=== PATIENT | male | born 1950 | race Caucasian/White ===

== ENCOUNTER 2018-09-13 18:47 | Emergency (ER) | payer OTHER, MEDICARE ==
[~2018-09-13] VITALS: Ht 167.6 cm; Wt 116.1 kg
[~2018-09-13 18:47] MED LIST: AML5T; AMLO10TA4 PO; ASPI-84; FRSM20T; KCL10CCR; MTF500T; OMEP-10 PO; SILO8CAP
--- OUTSIDE RECORDS SUMMARY | 2018-09-13 18:52 | XMS REPORT ---
Author Author SUZETTE BURT Organization [facility] Address [address] [place] [address] Care Team Providers [employer] Market Consultant Name Role Phone CARMELSUZETTE Unavailable PROBLEMS Type Condition ICD9-CM Code [id number] Code Onset Dates Condition Status SNOMED Code Problem Mood disorder F39 Active 88548389 Problem Type 2 diabetes mellitus without complication, without long-term current use of insulin E11.9 Active 451690672 Problem Elevated liver enzymes R74.8 Active 848505822 ALLERGIES No Information ENCOUNTERS Encounter Location Date Diagnosis [place] [id number] [place] [address] [id number] [place] [address] 59434- 3104 Jun, Elevated liver enzymes R74.8 [facility] [id number] [place] [address] 69761- 3108 Jun, [facility] [id number] [place] [address] 18898- 4243 Jun, [facility] [id number] [place] [address] 67895- 6333 Jun, Elevated liver enzymes R74.8 [place] [address] 00092- 5348 Jun, Type 2 diabetes mellitus without complication, without long- term current use of insulin E11.9 ; Chest pain on exertion R07.9 and Elevated liver enzymes R74.8 [facility] [id number] [place] [address] 00884- 6074 Jun, Type 2 diabetes mellitus without complication, without long- term current use of insulin E11.9 ; Chest pain on exertion R07.9 and Elevated liver enzymes R74.8 [facility] [address] 26121- 3213 Jun, [place] [id number] [place] [address] 48897- 2578 Jun, [place] [address] [id number] [place] [address] 14388- 2481 Jun, Chest pain on exertion R07.9 and SOB (shortness of breath) R06.02 [place] [id number] [place] [address] 59269- 8766 May, [place] [id number] [place] [address] 86704- 2625 May, Lumbar neuritis M54.16 [place] [id number] [place] [address] 89566- 8703 May, Pain in right hip M25.551 [place] [id number] [place] [address] 99576- 6172 May, [place] [id number] [place] [address] 72380- 3671 Apr, [place] [id number] [place] [address] 66121- 3729 Apr, [place] [id number] [place] [address] 60795- 4314 Apr, Type 2 diabetes mellitus without complication, without long- term current use of insulin E11.9 ; Mood disorder F39 and Shortness of breath R06.02 [place] [id number] [place] [address] 77867- 3932 Mar, Type 2 diabetes mellitus without complication, without long- term current use of insulin E11.9 [place] [id number] [place] [address] 14089- 2216 Mar, Type 2 diabetes mellitus without complication, without long- term current use of insulin E11.9 [place] [id number] [place] [address] 43053- 9615 Feb, Lumbar neuritis M54.16 [place] [address] [id number] [address] 6343 Feb, Lumbar neuritis M54.16 ; Type 2 diabetes mellitus without complication, without long-term current use of insulin E11.9 ; Mood disorder F39 ; Pain in left hip M25.552 and Pain in right hip M25.551 [place] [address] [id number] [address]- 4484 Feb, Lumbar neuritis M54.16 ; Pain in left hip M25.552 ; Pain in right hip M25.551 ; Type 2 diabetes mellitus without complication, without long- term current use of insulin E11.9 and Mood disorder F39 [place] [address] [place] [address] 52907- 0774 Feb, IMMUNIZATIONS No Known Immunizations SOCIAL HISTORY Never Assessed REASON FOR VISIT controlled medication PLAN OF CARE VITAL SIGNS MEDICATIONS Unknown Medications RESULTS No Results PROCEDURES No Known procedures INSTRUCTIONS MEDICATIONS ADMINISTERED No Known Medications MEDICAL (GENERAL) HISTORY Type Description Date Medical History Heart disease Medical History HTN Medical History Anxiety Medical History displaced vertebrae Medical History hip displacement b/l Medical History diabetes Surgical History Scar tissue repair R kidney 1980 Surgical History Quad CABG 2000 Surgical History Carpal tunnel release b/l 1996 Hospitalization History surgeries only
--- OUTSIDE RECORDS SUMMARY | 2018-09-13 18:52 | XMS REPORT ---
Author Author SUZETTE BURT Organization [facility] Address [address] [place] [address] Care Team Providers Care Corporate Staff Accountant Name Role Phone CARMELSUZETTE Unavailable PROBLEMS Type Condition ICD9-CM Code [id number] Code Onset Dates Condition Status SNOMED Code Problem Mood disorder F39 Active 04405850 Problem Type 2 diabetes mellitus without complication, without long-term current use of insulin E11.9 Active 430106473 Problem Elevated liver enzymes R74.8 Active 630852656 ALLERGIES No Known Allergies ENCOUNTERS Encounter Location Date Diagnosis [place] [id number] [address] [id number] [place] [address] 87268- 3601 Jun, Elevated liver enzymes R74.8 [facility] [id number] [place] [address] 34479- 6581 Jun, [facility] [id number] [place] [address] 53340- 8409 Jun, [facility] [id number] [place] [address] 16343- 3124 Jun, Elevated liver enzymes R74.8 [place] [address] [place] [address] [id number] [place] [address] 12678- 9373 Jun, Type 2 diabetes mellitus without complication, without long- term current use of insulin E11.9 ; Chest pain on exertion R07.9 and Elevated liver enzymes R74.8 [facility] [address] 28120- 2179 05 Jun, 2017 Type 2 diabetes mellitus without complication, without long- term current use of insulin E11.9 ; Chest pain on exertion R07.9 and Elevated liver enzymes R74.8 [facility] [id number] [place] [address] 86199- 6241 Jun, [place] [id number] [place] [address] 65373- 5511 Jun, [place] [id number] [place] [address] 06800- 0760 Jun, Chest pain on exertion R07.9 and SOB (shortness of breath) R06.02 [place] [id number] [place] [address] 15879- 5528 May, [place] [id number] [place] [address] 15443- 6346 May, Lumbar neuritis M54.16 [place] [id number] [place] [address] 10772- 5241 May, Pain in right hip M25.551 [place] [id number] [place] [address] 88139- 2017 May, [place] [id number] [place] [address] 53985- 4619 Apr, [place] [id number] [place] [address] 59049- 6932 Apr, [place] [id number] [place] [address] 17026- 6587 Apr, Type 2 diabetes mellitus without complication, without long- term current use of insulin E11.9 ; Mood disorder F39 and Shortness of breath R06.02 [place] [id number] [place] [address] 32116- 3132 Mar, Type 2 diabetes mellitus without complication, without long- term current use of insulin E11.9 [place] [id number] [place] [address] 23809- 5084 Mar, Type 2 diabetes mellitus without complication, without long- term current use of insulin E11.9 [place] [id number] [place] [address] 87576- 2428 Feb, Lumbar neuritis M54.16 [place] [address] [facility] [id number] [address]- 5490 Feb, Lumbar neuritis M54.16 ; Type 2 diabetes mellitus without complication, without long-term current use of insulin E11.9 ; Mood disorder F39 ; Pain in left hip M25.552 and Pain in right hip M25.551 [place] [address] [place] [id number] [address]- 6918 Feb, Lumbar neuritis M54.16 ; Pain in left hip M25.552 ; Pain in right hip M25.551 ; Type 2 diabetes mellitus without complication, without long- term current use of insulin E11.9 and Mood disorder F39 [place] [address] [place] [id number] [place] [address] 75105- 7078 Feb, IMMUNIZATIONS No Known Immunizations SOCIAL HISTORY Never Assessed REASON FOR VISIT cholesterol, bp, pain, Reports made appt to f/u because that is what he did with other providers. CBrumbackRN PLAN OF CARE VITAL SIGNS Height 68 in 2017-04-28 Weight 254.6 lbs 2017-04-28 Temperature 97.7 degrees Fahrenheit 2017-04-28 Heart Rate 88 bpm 2017-04-28 Respiratory Rate 20 2017-04-28 BMI 38.71 kg/m2 2017-04-28 Blood pressure systolic 130 mmHg 2017-04-28 Blood pressure diastolic 76 mmHg 2017-04-28 MEDICATIONS Medication Instructions Dosage Frequency Start Date End Date Duration Status Desoximetasone 0.25 % Externally Twice a day 1 application to affected area 12h Active Fenofibrate Micronized 134 MG Orally Once a day 1 capsule with a meal 24h Feb, 30 day(s) Active True Metrix Blood Glucose Test - Active Amlodipine Besylate 10 MG Orally Once a day 1 tablet 24h 30 days Active Rosuvastatin Calcium 40 mg Orally at bedtime 1 tablet Active Lancets - Active Oxycodone HCl 30 MG Orally 2 times a day 0.5 - 1 tablet as needed 12h Mar, 28 days Active Metformin HCl 500 MG Orally Twice a day approximately 12 hours apart 2 tablets 30 days Active RESULTS Name Result Date Reference Range Xray : Chest (IN HOUSE) 2017-04-28 PROCEDURES Procedure Date Ordered Result Body Site CHEST X-RAY Apr 28, 2017 [facility] VISIT ESTABLISHED PATIENT Apr 28, 2017 INSTRUCTIONS MEDICATIONS ADMINISTERED No Known Medications MEDICAL [...]
--- OUTSIDE RECORDS SUMMARY | 2018-09-13 18:52 | XMS REPORT ---
Author Author SUZETTE BURT Organization [facility] Address [address] [place] [address] Care Team Providers Care Profiler Operator Name Role Phone CARMELSUZETTE Unavailable PROBLEMS Type Condition ICD9-CM Code [id number] Code Onset Dates Condition Status SNOMED Code Problem Mood disorder F39 Active 14465007 Problem Type 2 diabetes mellitus without complication, without long-term current use of insulin E11.9 Active 770074121 Problem Elevated liver enzymes R74.8 Active 273821559 ALLERGIES No Information ENCOUNTERS Encounter Location Date Diagnosis [place] [address] [place] [id number] [place] [address] 65081- 0187 Jun, Elevated liver enzymes R74.8 [facility] [id number] [place] [address] 53630- 7352 Jun, [facility] [id number] [place] [address] 91885- 3628 Jun, [facility] [id number] [place] [address] 47298- 2066 Jun, Elevated liver enzymes R74.8 [place] [address] 52597- 4594 Jun, Type 2 diabetes mellitus without complication, without long- term current use of insulin E11.9 ; Chest pain on exertion R07.9 and Elevated liver enzymes R74.8 [facility] [id number] [place] [address] 41853- 2678 Jun, Type 2 diabetes mellitus without complication, without long- term current use of insulin E11.9 ; Chest pain on exertion R07.9 and Elevated liver enzymes R74.8 [facility] [address] 63626- 1787 Jun, [place] [id number] [place] [address] 13029- 0064 Jun, [place] [id number] [place] [address] 94791- 7008 Jun, Chest pain on exertion R07.9 and SOB (shortness of breath) R06.02 [place] [id number] [place] [address] 76227- 9275 May, [place] [id number] [place] [address] 24215- 8479 May, Lumbar neuritis M54.16 [place] [id number] [place] [address] 21469- 4547 May, Pain in right hip M25.551 [place] [id number] [place] [address] 51838- 9402 May, [place] [id number] [place] [address] 66507- 8595 Apr, [place] [address] [id number] [place] [address] 15045- 6599 Apr, [place] [id number] [place] [address] 12936- 8984 Apr, Type 2 diabetes mellitus without complication, without long- term current use of insulin E11.9 ; Mood disorder F39 and Shortness of breath R06.02 [place] [id number] [place] [address] 80541- 0595 Mar, Type 2 diabetes mellitus without complication, without long- term current use of insulin E11.9 [place] [id number] [place] [address] 81487- 5036 Mar, Type 2 diabetes mellitus without complication, without long- term current use of insulin E11.9 [place] [id number] [place] [address] 76149- 8665 Feb, Lumbar neuritis M54.16 [place] [address] [id number] [address]- 3209 Feb, Lumbar neuritis M54.16 ; Type 2 diabetes mellitus without complication, without long-term current use of insulin E11.9 ; Mood disorder F39 ; Pain in left hip M25.552 and Pain in right hip M25.551 [place] [address] [place] [id number] [address]- 8410 Feb, Lumbar neuritis M54.16 ; Pain in left hip M25.552 ; Pain in right hip M25.551 ; Type 2 diabetes mellitus without complication, without long- term current use of insulin E11.9 and Mood disorder F39 [place] [address] [place] [id number] [address]- 8006 Feb, IMMUNIZATIONS No Known Immunizations SOCIAL HISTORY Never Assessed REASON FOR VISIT controlled med PLAN OF CARE VITAL SIGNS MEDICATIONS Unknown [...]
--- OUTSIDE RECORDS SUMMARY | 2018-09-13 18:52 | XMS REPORT ---
Author Author SUZETTE BURT Organization [facility] Address [address] [place] [address] Care Team Providers Care Embossing Calender Operator Name Role Phone CARMELSUZETTE Unavailable PROBLEMS Type Condition ICD9-CM Code [id number] Code Onset Dates Condition Status SNOMED Code Problem Mood disorder F39 Active 57049498 Problem Type 2 diabetes mellitus without complication, without long-term current use of insulin E11.9 Active 777456421 Problem Elevated liver enzymes R74.8 Active 479586246 ALLERGIES No Information ENCOUNTERS Encounter Location Date Diagnosis [place] [address] [place] [address] [id number] [place] [address] 74243- 8379 Jun, Elevated liver enzymes R74.8 [facility] [id number] [place] [address] 58105- 0528 Jun, [facility] [id number] [place] [address] 28119- 9998 Jun, [facility] [id number] [place] [address] 86841- 8302 Jun, Elevated liver enzymes R74.8 [place] [address] 06295- 9155 Jun, Type 2 diabetes mellitus without complication, without long- term current use of insulin E11.9 ; Chest pain on exertion R07.9 and Elevated liver enzymes R74.8 [facility] [id number] [place] [address] 30662- 7551 Jun, Type 2 diabetes mellitus without complication, without long- term current use of insulin E11.9 ; Chest pain on exertion R07.9 and Elevated liver enzymes R74.8 [facility] [address] 26376- 4556 Jun, [place] [id number] [place] [address] 40986- 2973 Jun, [place] [id number] [place] [address] 75813- 6351 Jun, Chest pain on exertion R07.9 and SOB (shortness of breath) R06.02 [place] [id number] [place] [address] 20206- 1983 May, [place] [id number] [place] [address] 62377- 2187 May, Lumbar neuritis M54.16 [place] [id number] [place] [address] 56534- 7964 May, Pain in right hip M25.551 [place] [id number] [place] [address] 51056- 1861 May, [place] [address] [id number] [place] [address] 54754- 8666 Apr, [place] [address] [id number] [place] [address] 21763- 4586 Apr, [place] [id number] [place] [address] 70905- 2215 Apr, Type 2 diabetes mellitus without complication, without long- term current use of insulin E11.9 ; Mood disorder F39 and Shortness of breath R06.02 [place] [id number] [place] [address] 47854- 0323 Mar, Type 2 diabetes mellitus without complication, without long- term current use of insulin E11.9 [place] [id number] [place] [address] 37089- 1960 Mar, Type 2 diabetes mellitus without complication, without long- term current use of insulin E11.9 [place] [id number] [place] [address] 23478- 5285 Feb, Lumbar neuritis M54.16 [place] [address] [place] [id number], [place] [address]- 3260 Feb, Lumbar neuritis M54.16 ; Type 2 diabetes mellitus without complication, without long-term current use of insulin E11.9 ; Mood disorder F39 ; Pain in left hip M25.552 and Pain in right hip M25.551 [place] [address] [place] [address] [id number] [place] [address] 93482- 7491 Feb, Lumbar neuritis M54.16 ; Pain in left hip M25.552 ; Pain in right hip M25.551 ; Type 2 diabetes mellitus without complication, without long- term current use of insulin E11.9 and Mood disorder F39 [place] [address] [place] [address] 06206- 1311 Feb, IMMUNIZATIONS No Known Immunizations SOCIAL HISTORY Never Assessed REASON FOR VISIT Lab (walk-in)--[facility] PLAN OF CARE VITAL SIGNS MEDICATIONS Unknown Medications RESULTS Name Result Date Reference Range HEPATITIS PROFILE 2017-07-24 HEPATITIS A IGM NON-REACTIVE NON-REACTIVE HEPATITIS B SURFACE ANTIGEN NON-REACTIVE NON-REACTIVE HEPATITIS B CORE ANTIBODY (IGM) NON-REACTIVE NON-REACTIVE HEPATITIS C ANTIBODY NON-REACTIVE NON-REACTIVE SIGNAL TO CUT-OFF 0.02 <1.00 PROCEDURES Procedure Date Ordered Result Body Site LAB NOT BILLED BY [facility] Jul 24, 2017 VENIPUNCT, ROUTINE* Jul 24, 2017 INSTRUCTIONS MEDICATIONS ADMINISTERED No Known Medications [...]
--- OUTSIDE RECORDS SUMMARY | 2018-09-13 18:52 | XMS REPORT ---
Author Author SUZETTE BURT Organization [facility] Address [address] [place] [address] Care Team Providers Care Woolen Tester Name Role Phone SUZETTE BURT Unavailable PROBLEMS Type Condition ICD9-CM Code ADO83-SF Code Onset Dates Condition Status SNOMED Code Problem Mood disorder F39 Active 45462905 Problem Type 2 diabetes mellitus without complication, without long-term current use of insulin E11.9 Active 600696401 Problem Elevated liver enzymes R74.8 Active 478803336 ALLERGIES No Information ENCOUNTERS Encounter Location Date Diagnosis [place] [id number] [place] [address] 40394- 4099 Dec, [place] [address] 10472- 8791 Jun, Elevated liver enzymes R74.8 [facility] [id number] [place] [address] 54666- 6331 Jun, [place] [id number] [place] [address] 10688- 6177 Jun, [place] [id number] [place] [address] 82273- 3451 Jun, Elevated liver enzymes R74.8 [facility] [id number] [place] [address] 88797- 6864 Jun, Type 2 diabetes mellitus without complication, without long- term current use of insulin E11.9 ; Chest pain on exertion R07.9 and Elevated liver enzymes R74.8 [place] [id number] [place] [address] 97276- 9332 05 Jun, 2017 Type 2 diabetes mellitus without complication, without long- term current use of insulin E11.9 ; Chest pain on exertion R07.9 and Elevated liver enzymes R74.8 [facility] [address] [address] 6288 Jun, [facility] [id number] [place] [address] 91936- 4636 Jun, [facility] [id number] [place] [address] 67208- 4758 Jun, Chest pain on exertion R07.9 and SOB (shortness of breath) R06.02 [facility] [id number] [place] [address] 09949- 3074 May, [place] [id number] [place] [address] 47291- 7738 May, Lumbar neuritis M54.16 [place] [id number] [place] [address] 52047- 8208 May, Pain in right hip M25.551 [place] [id number] [place] [address] 51541- 6730 May, [facility] [id number] [place] [address] 30045- 4030 Apr, [place] [id number] [place] [address] 92401- 5669 Apr, [place] [id number] [place] [address] 22172- 5953 Apr, Type 2 diabetes mellitus without complication, without long- term current use of insulin E11.9 ; Mood disorder F39 and Shortness of breath R06.02 [facility] [address] [address] 2173 Mar, Type 2 diabetes mellitus without complication, without long- term current use of insulin E11.9 [facility] [address] [address] 7707 Mar, Type 2 diabetes mellitus without complication, without long- term current use of insulin E11.9 [place] [address] [place] [id number] [address] 0004 Feb, Lumbar neuritis M54.16 [place] [id number] [place] [address] 93833- 0880 Feb, Lumbar neuritis M54.16 ; Type 2 diabetes mellitus without complication, without long-term current use of insulin E11.9 ; Mood disorder F39 ; Pain in left hip M25.552 and Pain in right hip M25.551 [place] [address] [place] [address] 87112- 4627 Feb, Lumbar neuritis M54.16 ; Pain in left hip M25.552 ; Pain in right hip M25.551 ; Type 2 diabetes mellitus without complication, without long- term current use of insulin E11.9 and Mood disorder F39 [address] [place] [address] 31605- 0920 Feb, IMMUNIZATIONS No Known Immunizations SOCIAL HISTORY Never Assessed REASON FOR VISIT Lab (walk-in) PLAN OF CARE VITAL SIGNS MEDICATIONS Unknown Medications RESULTS Name Result Date Reference Range TSH 2017-03-20 TSH 1.120 0.450-4.500 CBC 2017-03-20 WBC 10.8 3.4-10.8 RBC 5.26 4.14-5.80 Hemoglobin 16.6 12.6-17.7 Hematocrit 48.1 37.5-51.0 MCV 91 79-97 MCH 31.6 26.6-33.0 MCHC 34.5 31.5-35.7 RDW 13.9 12.3-15.4 Platelets 210 150-379 Neutrophils 66 Not Estab. Lymphs 21 Not Estab. Monocytes 7 Not Estab. Eos 4 Not Estab. Basos 1 Not Estab. Neutrophils (Absolute) 7.2 1.4-7.0 Lymphs (Absolute) 2.3 0.7-3.1 Monocytes(Absolute) 0.8 0.1-0.9 Eos (Absolute) 0.4 0.0-0.4 Baso (Absolute) 0.1 0.0-0.2 Immature Granulocytes 1 Not Estab. Immature Grans (Abs) 0.1 0.0-0.1 CMP 2017-03-20 Glucose, Serum 217 65-99 BUN 16 8-27 Creatinine, Serum 0.82 0.76-1.27 eGFR If NonAfricn Am 92 >59 eGFR If Africn Am 106 >59 BUN/Creatinine Ratio 20 10-24 Sodium, Serum 139 134-144 Potassium, Serum 4.4 3.5-5.2 Chloride, Serum 95 96-106 Carbon Dioxide, Total 24 18-29 Calcium, Serum 9.6 8.6-10.2 Protein, Total, Serum 7.7 6.0-8.5 Albumin, Serum 4.1 3.6-4.8 Globulin, Total 3.6 1.5-4.5 A/G Ratio 1.1 1.2-2.2 Bilirubin, Total 0.5 0.0-1.2 Alkaline Phosphatase, S 80 39-117 AST (SGOT) 131 0-40 ALT (SGPT) 91 0-44 LIPID PANEL 2017-03-20 Cholesterol, Total 226 100-199 Triglycerides 352 0-149 HDL Cholesterol 29 >39 VLDL Cholesterol Jhonny 70 5-40 LDL Cholesterol Calc 127 0-99 Comment: PROCEDURES Procedure Date Ordered Result Body Site LAB NOT BILLED BY [facility] Mar 20, 2017 VENIPUNCT, ROUTINE* Mar 20, 2017 INSTRUCTIONS MEDICATIONS ADMINISTERED No Known Medications MEDICAL (GENERAL) HISTORY Type Description Date Medical History Heart disease Medical History HTN Medical History Anxiety Medical History displaced vertebrae Medical History hip displacement b/l Medical History diabetes Surgical History Scar tissue repair R kidney 1981 Surgical History Quad CABG 2000 Surgical History Carpal tunnel release b/l 1996 Hospitalization History surgeries only
--- OUTSIDE RECORDS SUMMARY | 2018-09-13 18:52 | XMS REPORT ---
Author Author SUZETTE BURT Organization [facility] Address [address] [place] [address] Care Team Providers Care State Director Name Role Phone CARMELSUZETTE Unavailable PROBLEMS Type Condition ICD9-CM Code FIH18-PW Code Onset Dates Condition Status SNOMED Code Problem Mood disorder F39 Active 91727645 Problem Type 2 diabetes mellitus without complication, without long-term current use of insulin E11.9 Active 537645454 Problem Elevated liver enzymes R74.8 Active 055586461 ALLERGIES No Information ENCOUNTERS Encounter Location Date Diagnosis [place] [address] [place] [address] [id number] [place] [address] 03977- 8044 Jun, Elevated liver enzymes R74.8 [facility] [id number] [place] [address] 42760- 8386 Jun, [facility] [id number] [place] [address] 68525- 5297 Jun, [facility] [address] 60413- 7521 Jun, Elevated liver enzymes R74.8 [place] [address] 36924- 4929 Jun, Type 2 diabetes mellitus without complication, without long- term current use of insulin E11.9 ; Chest pain on exertion R07.9 and Elevated liver enzymes R74.8 [facility] [id number] [place] [address] 33904- 9732 Jun, Type 2 diabetes mellitus without complication, without long- term current use of insulin E11.9 ; Chest pain on exertion R07.9 and Elevated liver enzymes R74.8 [facility] [address] 58374- 4983 Jun, [place] [id number] [place] [address] 21992- 9762 Jun, [place] [address] [id number] [place] [address] 65370- 0691 Jun, Chest pain on exertion R07.9 and SOB (shortness of breath) R06.02 [place] [address] [id number] [place] [address] 49942- 2794 May, [place] [address] [id number] [place] [address] 49267- 5452 May, Lumbar neuritis M54.16 [place] [address] [id number] [place] [address] 25414- 1623 May, Pain in right hip M25.551 [place] [address] [id number] [place] [address] 38582- 9067 May, [place] [address] [id number] [place] [address] 89732- 0857 Apr, [place] [address] [id number] [place] [address] 79053- 0171 Apr, [place] [address] [id number] [place] [address] 68453- 7807 Apr, Type 2 diabetes mellitus without complication, without long- term current use of insulin E11.9 ; Mood disorder F39 and Shortness of breath R06.02 [place] [id number] [place] [address] 06692- 9427 Mar, Type 2 diabetes mellitus without complication, without long- term current use of insulin E11.9 [place] [id number] [place] [address] 12951- 7257 Mar, Type 2 diabetes mellitus without complication, without long- term current use of insulin E11.9 [place] [address] [id number] [place] [address] 82234- 9354 Feb, Lumbar neuritis M54.16 [place] [address] [place] [id number] [address]- 6658 Feb, Lumbar neuritis M54.16 ; Type 2 diabetes mellitus without complication, without long-term current use of insulin E11.9 ; Mood disorder F39 ; Pain in left hip M25.552 and Pain in right hip M25.551 [place] [address] [place] [id number] [place] [address] 31628- 2326 Feb, Lumbar neuritis M54.16 ; Pain in left hip M25.552 ; Pain in right hip M25.551 ; Type 2 diabetes mellitus without complication, without long- term current use of insulin E11.9 and Mood disorder F39 [place] [address] [place] [address] 21082- 8009 Feb, IMMUNIZATIONS No Known Immunizations SOCIAL HISTORY Never Assessed REASON FOR VISIT lab results PLAN OF CARE VITAL SIGNS MEDICATIONS Unknown [...]
--- OUTSIDE RECORDS SUMMARY | 2018-09-13 18:52 | XMS REPORT ---
Author Author SUZETTE BURT Organization [facility] Address [address] [place] [address] Care Team Providers Care Gravity Prospector Name Role Phone SUZETTE BURT Unavailable PROBLEMS Type Condition ICD9-CM Code QHO53-GC Code Onset Dates Condition Status SNOMED Code Problem Mood disorder F39 Active 67720348 Problem Type 2 diabetes mellitus without complication, without long-term current use of insulin E11.9 Active 645654255 Problem Elevated liver enzymes R74.8 Active 439905257 ALLERGIES No Known Allergies ENCOUNTERS Encounter Location Date Diagnosis [place] [id number] [place] [address] 80078- 6371 Dec, [facility] [id number] [place] [address] 05878- 8867 Jun, Elevated liver enzymes R74.8 [facility] [id number] [place] [address] 79786- 6752 Jun, [facility] [id number] [place] [address] 48292- 2137 Jun, [place] [address] [place] [id number] [place] [address] 98777- 7836 Jun, Elevated liver enzymes R74.8 [facility] [id number] [place] [address] 28492- 0042 Jun, Type 2 diabetes mellitus without complication, without long- term current use of insulin E11.9 ; Chest pain on exertion R07.9 and Elevated liver enzymes R74.8 [facility] [id number] [place] [address] 02370- 8086 05 Jun, 2017 Type 2 diabetes mellitus without complication, without long- term current use of insulin E11.9 ; Chest pain on exertion R07.9 and Elevated liver enzymes R74.8 [place] [address], [place] [address]- 8411 Jun, [facility] [id number] [place] [address] 23609- 1676 Jun, [facility] [id number] [place] [address] 78560- 7511 Jun, Chest pain on exertion R07.9 and SOB (shortness of breath) R06.02 [place] [address] [place] [id number] [place] [address] 08686- 8583 May, [place] [id number] [place] [address] 89703- 7836 May, Lumbar neuritis M54.16 [place] [id number] [place] [address] 76854- 4510 May, Pain in right hip M25.551 [place] [id number] [place] [address] 10883- 2356 May, [place] [address] [id number] [place] [address] 71902- 7269 Apr, [place] [id number] [place] [address] 50195- 0215 Apr, [place] [address] [place] [address] 10752- 4862 Apr, Type 2 diabetes mellitus without complication, without long- term current use of insulin E11.9 ; Mood disorder F39 and Shortness of breath R06.02 [facility] [address] [place] [address] 54585- 2811 Mar, Type 2 diabetes mellitus without complication, without long- term current use of insulin E11.9 [place] [address] [place] [address] 34377- 1803 Mar, Type 2 diabetes mellitus without complication, without long- term current use of insulin E11.9 [place] [address], [place] [address]- 5497 Feb, Lumbar neuritis M54.16 [place] [id number] [place] [address] 32137- 9375 Feb, Lumbar neuritis M54.16 ; Type 2 diabetes mellitus without complication, without long-term current use of insulin E11.9 ; Mood disorder F39 ; Pain in left hip M25.552 and Pain in right hip M25.551 [place] [address] [place] [address] 45602- 1864 Feb, Lumbar neuritis M54.16 ; Pain in left hip M25.552 ; Pain in right hip M25.551 ; Type 2 diabetes mellitus without complication, without long- term current use of insulin E11.9 and Mood disorder F39 [address] [place] [address] 64911- 1759 Feb, IMMUNIZATIONS No Known Immunizations SOCIAL HISTORY Never Assessed REASON FOR VISIT Establish Care--Norma Ram MA PLAN OF CARE VITAL SIGNS Height 68 in 2017-03-17 Weight 251.6 lbs 2017-03-17 Temperature 98.4 degrees Fahrenheit 2017-03-17 Heart Rate 88 bpm 2017-03-17 Respiratory Rate 20 2017-03-17 BMI 38.25 kg/m2 2017-03-17 Blood pressure systolic 128 mmHg 2017-03-17 Blood pressure diastolic 78 mmHg 2017-03-17 MEDICATIONS Medication Instructions Dosage Frequency Start Date End Date Duration Status Oxycodone HCl 30 MG Orally to 1 tablet twice a day as needed for pain 0.5 tablet as needed Active Metformin HCl 500 mg Orally Twice a day approximately 12 hours apart 2 tablets Active Amlodipine Besylate 10 MG Orally Once a day 1 tablet 24h Active Desoximetasone 0.25 % Externally Twice a day 1 application to affected area 12h Active Lancets - Active Rosuvastatin Calcium 40 mg Orally at bedtime 1 tablet Active True Metrix Blood Glucose Test - Active RESULTS Name Result Date Reference Range A1C (IN HOUSE) 2017-03-17 A1C IN HOUSE 9.3 4.3 - 5.6 % Previous A1c Lot [id number] Exp date 12/14 PROCEDURES Procedure Date Ordered Result Body Site GLYCATED HEMOGLOBIN TEST Mar 17, 2017 [facility] VISIT NEW PATIENT Mar 17, 2017 INSTRUCTIONS MEDICATIONS ADMINISTERED No Known Medications [...]
[2018-09-13] MEDS ORDERED: HYDROmorphone 2 MG/ML VIAL (DILAUDID) ONE (18:53)
--- OUTSIDE RECORDS SUMMARY | 2018-09-13 18:53 | XMS REPORT ---
Author Author SUZETTE BURT Organization [facility] Address [address] [place] [address] Care Team Providers Care Marriage And Family Counselor Name Role Phone CARMELSUZETTE Unavailable PROBLEMS Type Condition ICD9-CM Code KNR14-SE Code Onset Dates Condition Status SNOMED Code Problem Mood disorder F39 Active 49417118 Problem Type 2 diabetes mellitus without complication, without long-term current use of insulin E11.9 Active 165732242 Problem Elevated liver enzymes R74.8 Active 541361874 ALLERGIES No Known Allergies ENCOUNTERS Encounter Location Date Diagnosis [place] [address] [place] [id number] [place] [address] 57749- 8159 Jun, Elevated liver enzymes R74.8 [facility] [id number] [place] [address] 80111- 0617 Jun, [facility] [id number] [place] [address] 54701- 6693 Jun, [facility] [id number] [place] [address] 18042- 6477 Jun, Elevated liver enzymes R74.8 [place] [address] [id number] [place] [address] 67689- 0995 Jun, Type 2 diabetes mellitus without complication, without long- term current use of insulin E11.9 ; Chest pain on exertion R07.9 and Elevated liver enzymes R74.8 [facility] [address] 44585- 5064 05 Jun, 2017 Type 2 diabetes mellitus without complication, without long- term current use of insulin E11.9 ; Chest pain on exertion R07.9 and Elevated liver enzymes R74.8 [facility] [id number] [place] [address] 76587- 9494 Jun, [place] [id number] [place] [address] 38016- 0229 Jun, [place] [address] [place] [address] 92485- 9438 Jun, Chest pain on exertion R07.9 and SOB (shortness of breath) R06.02 [place] [id number] [place] [address] 84777- 9934 May, [place] [id number] [place] [address] 84251- 1081 May, Lumbar neuritis M54.16 [place] [address] [place] [address] 31611- 3602 May, Pain in right hip M25.551 [place] [id number] [place] [address] 32515- 2436 May, [place] [id number] [place] [address] 84397- 9354 Apr, [place] [id number] [place] [address] 18111- 3639 Apr, [place] [id number] [place] [address] 13627- 6662 Apr, Type 2 diabetes mellitus without complication, without long- term current use of insulin E11.9 ; Mood disorder F39 and Shortness of breath R06.02 [place] [id number] [place] [address] 87312- 2960 Mar, Type 2 diabetes mellitus without complication, without long- term current use of insulin E11.9 [place] [id number] [place] [address] 02350- 7345 Mar, Type 2 diabetes mellitus without complication, without long- term current use of insulin E11.9 [place] [id number] [place] [address] 62651- 7655 Feb, Lumbar neuritis M54.16 [place] [address] [facility] [id number] [address]- 4005 Feb, Lumbar neuritis M54.16 ; Type 2 diabetes mellitus without complication, without long-term current use of insulin E11.9 ; Mood disorder F39 ; Pain in left hip M25.552 and Pain in right hip M25.551 [place] [address] [place] [id number], [place] [address]- 0592 Feb, Lumbar neuritis M54.16 ; Pain in left hip M25.552 ; Pain in right hip M25.551 ; Type 2 diabetes mellitus without complication, without long- term current use of insulin E11.9 and Mood disorder F39 [place] [address] [place] [address] 05434- 1213 Feb, IMMUNIZATIONS No Known Immunizations SOCIAL HISTORY Never Assessed REASON FOR VISIT Shortness of breath with the simple tasks-[place] ID PLAN OF CARE VITAL SIGNS Height 68 in 2017-06-30 Weight 252.8 lbs 2017-06-30 Temperature 98.9 degrees Fahrenheit 2017-06-30 Heart Rate 92 bpm 2017-06-30 Respiratory Rate 20 2017-06-30 Oximetry 94 % 2017-06-30 BMI 38.43 kg/m2 2017-06-30 Blood pressure systolic 142 mmHg 2017-06-30 Blood pressure diastolic 98 mmHg 2017-06-30 MEDICATIONS Medication Instructions Dosage Frequency Start Date End Date Duration Status Lancets - Active Rosuvastatin Calcium 40 mg Orally at bedtime 1 tablet Active True Metrix Blood Glucose Test - Active Desoximetasone 0.25 % Externally Twice a day 1 application to affected area 12h Active Metformin HCl 500 MG Orally Twice a day approximately 12 hours apart 2 tablets 30 days Active Oxycodone HCl 30 MG Orally 2 times a day 0.5 - 1 tablet as needed 12h May, 28 days Active Amlodipine Besylate 10 MG Orally Once a day 1 tablet 24h 30 days Active Fenofibrate Micronized 134 MG Orally Once a day 1 capsule with a meal 24h Feb, 30 day(s) Active RESULTS No Results PROCEDURES Procedure Date Ordered Result Body Site EKG, TRACING (IN-HOUSE) 2017-06-30 Abnormal MEASURE BLOOD OXYGEN LEVEL Jun 30, 2017 VENIPUNCT, ROUTINE* Jun 30, 2017 [facility] VISIT ESTABLISHED PATIENT Jun 30, 2017 ELECTROCARDIOGRAM, TRACING Jun 30, 2017 [facility] Jun 30, 2017 INSTRUCTIONS MEDICATIONS ADMINISTERED No Known Medications [...]
--- OUTSIDE RECORDS SUMMARY | 2018-09-13 18:53 | XMS REPORT ---
Author Author SUZETTE BURT Organization [facility] Address [address] [place] [address] Care Team Providers Care Healthcare Advisory Services Manager Name Role Phone CARMELSUZETTE Unavailable PROBLEMS Type Condition ICD9-CM Code TNV67-OB Code Onset Dates Condition Status SNOMED Code Problem Mood disorder F39 Active 97418383 Problem Type 2 diabetes mellitus without complication, without long-term current use of insulin E11.9 Active 963170253 Problem Elevated liver enzymes R74.8 Active 908605903 ALLERGIES No Information ENCOUNTERS Encounter Location Date Diagnosis [place] [id number] [place] [id number] [place] [address] 36735- 2215 Jun, Elevated liver enzymes R74.8 [facility] [id number] [place] [address] 36190- 3806 Jun, [facility] [id number] [place] [address] 26983- 6898 Jun, [facility] [address] 8[address]46- 0768 Jun, Elevated liver enzymes R74.8 [place] [address] 86742- 0699 Jun, Type 2 diabetes mellitus without complication, without long- term current use of insulin E11.9 ; Chest pain on exertion R07.9 and Elevated liver enzymes R74.8 [facility] [id number] [place] [address] 00975- 4012 Jun, Type 2 diabetes mellitus without complication, without long- term current use of insulin E11.9 ; Chest pain on exertion R07.9 and Elevated liver enzymes R74.8 [facility] [address] 52515- 3338 Jun, [place] [id number] [place] [address] 14239- 3421 Jun, [place] [id number] [place] [address] 56342- 6477 Jun, Chest pain on exertion R07.9 and SOB (shortness of breath) R06.02 [place] [id number] [place] [address] 01557- 5857 May, [place] [id number] [place] [address] 38935- 1920 May, Lumbar neuritis M54.16 [place] [id number] [place] [address] 95554- 0056 May, Pain in right hip M25.551 [place] [id number] [place] [address] 34769- 6029 May, [place] [id number] [place] [address] 36291- 9828 Apr, [place] [id number] [place] [address] 08178- 3125 Apr, [place] [id number] [place] [address] 20844- 1752 Apr, Type 2 diabetes mellitus without complication, without long- term current use of insulin E11.9 ; Mood disorder F39 and Shortness of breath R06.02 [place] [id number] [place] [address] 92069- 3654 Mar, Type 2 diabetes mellitus without complication, without long- term current use of insulin E11.9 [place] [id number] [place] [address] 99444- 4380 Mar, Type 2 diabetes mellitus without complication, without long- term current use of insulin E11.9 [place] [id number] [place] [address] 47224- 5827 Feb, Lumbar neuritis M54.16 [place] [address] [id number] [address]- 8616 Feb, Lumbar neuritis M54.16 ; Type 2 diabetes mellitus without complication, without long-term current use of insulin E11.9 ; Mood disorder F39 ; Pain in left hip M25.552 and Pain in right hip M25.551 [place] [address] [place] [address] [id number], [place] [address]- 4509 Feb, Lumbar neuritis M54.16 ; Pain in left hip M25.552 ; Pain in right hip M25.551 ; Type 2 diabetes mellitus without complication, without long- term current use of insulin E11.9 and Mood disorder F39 [place] [address] [place] [address] 70787- 1980 Feb, IMMUNIZATIONS No Known Immunizations SOCIAL HISTORY Never Assessed REASON FOR VISIT Lab (walk-in)--[facility] PLAN OF CARE VITAL SIGNS MEDICATIONS Unknown Medications RESULTS No Results PROCEDURES Procedure Date Ordered Result Body Site LAB NOT BILLED BY [facility] Jul 17, 2017 VENIPUNCT, ROUTINE* Jul 17, 2017 INSTRUCTIONS MEDICATIONS ADMINISTERED No Known [...]
--- OUTSIDE RECORDS SUMMARY | 2018-09-13 18:53 | XMS REPORT ---
Author Author SUZETTE BRUT Organization [facility] Address [address] [place] [address] Care Team Providers Care Citrus Fruit Packer Name Role Phone CARMELSUZETTE Unavailable PROBLEMS Type Condition ICD9-CM Code XUM19-CK Code Onset Dates Condition Status SNOMED Code Problem Mood disorder F39 Active 65610900 Problem Type 2 diabetes mellitus without complication, without long-term current use of insulin E11.9 Active 001461326 Problem Elevated liver enzymes R74.8 Active 179151337 ALLERGIES No Information ENCOUNTERS Encounter Location Date Diagnosis [place] [address] [place] [id number] [place] [address] 59899- 6358 Jun, Elevated liver enzymes R74.8 [facility] [address] [id number] [place] [address] 04603- 9380 Jun, [facility] [id number] [place] [address] 64360- 8038 Jun, [facility] [address] 33266- 4690 Jun, Elevated liver enzymes R74.8 [facility] [address] 45270- 2445 Jun, Type 2 diabetes mellitus without complication, without long- term current use of insulin E11.9 ; Chest pain on exertion R07.9 and Elevated liver enzymes R74.8 [facility] [address] [place] [id number] [place] [address] 82260- 4588 Jun, Type 2 diabetes mellitus without complication, without long- term current use of insulin E11.9 ; Chest pain on exertion R07.9 and Elevated liver enzymes R74.8 [facility] [address] 36750- 0169 Jun, [place] [address] [place] [address] [id number] [place] [address] 51374- 6587 Jun, [place] [address] [place] [id number] [place] [address] 62790- 5839 Jun, Chest pain on exertion R07.9 and SOB (shortness of breath) R06.02 [place] [address] [place] [address] [id number] [place] [address] 44563- 7939 May, [place] [address] [place] [address] [place] [address] 50856- 9053 May, Lumbar neuritis M54.16 [place] [address] [place] [address] [address] [place] [address] 89897- 2639 May, Pain in right hip M25.551 [place] [address] [place] [address] [address] [place] [address] 15779- 7617 May, [place] [address] [place] [id number] [place] [address] 01389- 7269 Apr, [place] [address] [place] [address] [id number] [place] [address] 39109- 0727 Apr, [place] [address] [place] [id number] [place] [address] 67961- 0778 Apr, Type 2 diabetes mellitus without complication, without long- term current use of insulin E11.9 ; Mood disorder F39 and Shortness of breath R06.02 [place] [address] [place] [address] [id number] [place] [address] 32279- 2684 Mar, Type 2 diabetes mellitus without complication, without long- term current use of insulin E11.9 [place] [address] [place] [address] [id number] [place] [address] 80985- 8764 Mar, Type 2 diabetes mellitus without complication, without long- term current use of insulin E11.9 [place] [address] [place] [address] [address] [place] [address] 72174- 9591 Feb, Lumbar neuritis M54.16 [place] [address] [id number], [place] [address]- 2065 Feb, Lumbar neuritis M54.16 ; Type 2 diabetes mellitus without complication, without long-term current use of insulin E11.9 ; Mood disorder F39 ; Pain in left hip M25.552 and Pain in right hip M25.551 [place] [address] [place] [id number], [place] [address]- 6707 Feb, Lumbar neuritis M54.16 ; Pain in left hip M25.552 ; Pain in right hip M25.551 ; Type 2 diabetes mellitus without complication, without long- term current use of insulin E11.9 and Mood disorder F39 [place] [address] [place] [address] 38160- 3271 Feb, IMMUNIZATIONS No Known Immunizations SOCIAL HISTORY Never Assessed REASON FOR VISIT Returned call PLAN OF CARE VITAL SIGNS MEDICATIONS Unknown [...]
--- OUTSIDE RECORDS SUMMARY | 2018-09-13 18:53 | XMS REPORT ---
Author Author SUZETTE BURT Organization [facility] Address [address] [place] [address] Care Team Providers Care Face Boss Name Role Phone CARMELSUZETTE Unavailable PROBLEMS Type Condition ICD9-CM Code OCL23-OE Code Onset Dates Condition Status SNOMED Code Problem Mood disorder F39 Active 07272781 Problem Type 2 diabetes mellitus without complication, without long-term current use of insulin E11.9 Active 076807512 Problem Elevated liver enzymes R74.8 Active 023233809 ALLERGIES No Information ENCOUNTERS Encounter Location Date Diagnosis [place] [address] [place] [address] [id number] [place] [address] 59355- 7526 Jun, Elevated liver enzymes R74.8 [facility] [id number] [place] [address] 26855- 0157 Jun, [facility] [id number] [place] [address] 85286- 1263 Jun, [facility] [address] 22557- 9963 Jun, Elevated liver enzymes R74.8 [place] [address] 20341- 5947 Jun, Type 2 diabetes mellitus without complication, without long- term current use of insulin E11.9 ; Chest pain on exertion R07.9 and Elevated liver enzymes R74.8 [facility] [id number] [place] [address] 99054- 4462 Jun, Type 2 diabetes mellitus without complication, without long- term current use of insulin E11.9 ; Chest pain on exertion R07.9 and Elevated liver enzymes R74.8 [facility] [address] 53104- 4163 Jun, [place] [address] [id number] [place] [address] 19625- 0885 Jun, [place] [address] [place] [address] [id number] [place] [address] 28497- 5035 Jun, Chest pain on exertion R07.9 and SOB (shortness of breath) R06.02 [place] [address] [id number] [place] [address] 89041- 5464 May, [place] [address] [place] [address] [id number] [place] [address] 66027- 8188 May, Lumbar neuritis M54.16 [place] [address] [id number] [place] [address] 66570- 6637 May, Pain in right hip M25.551 [place] [address] [id number] [place] [address] 12498- 4123 May, [place] [address] [place] [address] [id number] [place] [address] 31234- 8127 Apr, [place] [address] [place] [address] [id number] [place] [address] 63885- 3389 Apr, [place] [address] [place] [address] [id number] [place] [address] 24214- 2153 Apr, Type 2 diabetes mellitus without complication, without long- term current use of insulin E11.9 ; Mood disorder F39 and Shortness of breath R06.02 [place] [address] [id number] [place] [address] 91288- 6405 Mar, Type 2 diabetes mellitus without complication, without long- term current use of insulin E11.9 [place] [address] [address] [id number] [place] [address] 25798- 9671 Mar, Type 2 diabetes mellitus without complication, without long- term current use of insulin E11.9 [place] [address] [address] [id number] [place] [address] 29128- 3727 Feb, Lumbar neuritis M54.16 [place] [address] [id number] [address]- 5400 Feb, Lumbar neuritis M54.16 ; Type 2 diabetes mellitus without complication, without long-term current use of insulin E11.9 ; Mood disorder F39 ; Pain in left hip M25.552 and Pain in right hip M25.551 [place] [address] [id number], [place] [address]- 9856 Feb, Lumbar neuritis M54.16 ; Pain in left hip M25.552 ; Pain in right hip M25.551 ; Type 2 diabetes mellitus without complication, without long- term current use of insulin E11.9 and Mood disorder F39 [place] [address] [id number] [address]- 1854 Feb, IMMUNIZATIONS No Known Immunizations SOCIAL HISTORY Never Assessed REASON FOR VISIT Controlled Med Refill 05/23 PLAN OF CARE VITAL SIGNS MEDICATIONS Unknown [...]
--- OUTSIDE RECORDS SUMMARY | 2018-09-13 18:53 | XMS REPORT ---
Author Author SUZETTE BURT Organization [facility] Address [address] [place] [address] Care Team Providers Care Electronics Technician Apprentice Name Role Phone CARMELSUZETTE Unavailable PROBLEMS Type Condition ICD9-CM Code QDP15-QW Code Onset Dates Condition Status SNOMED Code Problem Mood disorder F39 Active 78397705 Problem Type 2 diabetes mellitus without complication, without long-term current use of insulin E11.9 Active 221593327 Problem Elevated liver enzymes R74.8 Active 479910186 ALLERGIES No Information ENCOUNTERS Encounter Location Date Diagnosis [place] [address] [place] [id number] [place] [address] 73230- 4349 Jun, Elevated liver enzymes R74.8 [facility] [address] [id number] [place] [address] 25075- 0038 Jun, [facility] [address] [id number] [place] [address] 75256- 2978 Jun, [facility] [address] 34792- 8715 Jun, Elevated liver enzymes R74.8 [facility] [address] 63364- 7400 Jun, Type 2 diabetes mellitus without complication, without long- term current use of insulin E11.9 ; Chest pain on exertion R07.9 and Elevated liver enzymes R74.8 [facility] [address] [id number] [place] [address] 21378- 1614 Jun, Type 2 diabetes mellitus without complication, without long- term current use of insulin E11.9 ; Chest pain on exertion R07.9 and Elevated liver enzymes R74.8 [facility] [address] 79263- 0404 Jun, [place] [id number] [place] [address] 69207- 6296 Jun, [place] [address] [place] [id number] [place] [address] 62000- 4517 Jun, Chest pain on exertion R07.9 and SOB (shortness of breath) R06.02 [place] [address] [place] [id number] [place] [address] 92351- 7404 May, [place] [address] [place] [address] [id number] [place] [address] 98178- 7766 May, Lumbar neuritis M54.16 [place] [address] [place] [id number] [place] [address] 09497- 5769 May, Pain in right hip M25.551 [place] [address] [id number] [place] [address] 26091- 4617 May, [place] [address] [place] [id number] [place] [address] 87896- 3081 Apr, [place] [address] [place] [id number] [place] [address] 96799- 6439 Apr, [place] [address] [place] [id number] [place] [address] 86608- 2987 Apr, Type 2 diabetes mellitus without complication, without long- term current use of insulin E11.9 ; Mood disorder F39 and Shortness of breath R06.02 [place] [address] [id number] [place] [address] 43225- 4025 Mar, Type 2 diabetes mellitus without complication, without long- term current use of insulin E11.9 [place] [address] [id number] [place] [address] 40806- 2147 Mar, Type 2 diabetes mellitus without complication, without long- term current use of insulin E11.9 [place] [address] [id number] [place] [address] 61544- 8974 Feb, Lumbar neuritis M54.16 [place] [address] [id number], [place] [address]- 0528 Feb, Lumbar neuritis M54.16 ; Type 2 diabetes mellitus without complication, without long-term current use of insulin E11.9 ; Mood disorder F39 ; Pain in left hip M25.552 and Pain in right hip M25.551 [place] [address] [id number], [place] [address]- 2239 Feb, Lumbar neuritis M54.16 ; Pain in left hip M25.552 ; Pain in right hip M25.551 ; Type 2 diabetes mellitus without complication, without long- term current use of insulin E11.9 and Mood disorder F39 [place] [address] [id number], [place] [address]- 9261 Feb, IMMUNIZATIONS No Known Immunizations SOCIAL HISTORY Never Assessed REASON FOR VISIT ameritox CBrumbackRN PLAN OF CARE VITAL SIGNS MEDICATIONS Unknown Medications RESULTS Name Result Date Reference Range AMERITOX 2017-06-22 PROCEDURES Procedure Date Ordered Result Body Site No Charge Jun 22, 2017 INSTRUCTIONS MEDICATIONS ADMINISTERED No Known Medications [...]
--- OUTSIDE RECORDS SUMMARY | 2018-09-13 18:53 | XMS REPORT ---
Author Author SUZETTE BURT Organization [facility] Address [address] [place] [address] Care Team Providers Care Manager Pool Name Role Phone CARMELSUZETTE Unavailable PROBLEMS Type Condition ICD9-CM Code OGP18-HG Code Onset Dates Condition Status SNOMED Code Problem Mood disorder F39 Active 69908985 Problem Type 2 diabetes mellitus without complication, without long-term current use of insulin E11.9 Active 860321441 Problem Elevated liver enzymes R74.8 Active 404266379 ALLERGIES No Information ENCOUNTERS Encounter Location Date Diagnosis [place] [address] [place] [id number] [place] [place] [address] 18289- 1658 Jun, Elevated liver enzymes R74.8 [facility] [address] [place] [id number] [place] [place] [address] 99055- 5740 Jun, [facility] [address] [place] [address] [id number] [place] [address] 38572- 2957 Jun, [facility] [address] 62213- 1770 Jun, Elevated liver enzymes R74.8 [place] [address] 01255- 1328 Jun, Type 2 diabetes mellitus without complication, without long- term current use of insulin E11.9 ; Chest pain on exertion R07.9 and Elevated liver enzymes R74.8 [facility] [address] [place] [id number] [place] [address] 74951- 7381 Jun, Type 2 diabetes mellitus without complication, without long- term current use of insulin E11.9 ; Chest pain on exertion R07.9 and Elevated liver enzymes R74.8 [facility] [address] 92988- 7452 Jun, [place] [address] [place] [address] [id number] [place] [address] 25230- 5419 Jun, [place] [address] [place] [address] [id number] [place] [place] [address] 09845- 3841 Jun, Chest pain on exertion R07.9 and SOB (shortness of breath) R06.02 [place] [address] [place] [address] [id number] [place] [address] 49534- 7944 May, [place] [address] [place] [address] [id number] [place] [address] 81690- 5204 May, Lumbar neuritis M54.16 [place] [address] [place] [address] [id number] [place] [address] 48189- 8503 May, Pain in right hip M25.551 [place] [address] [place] [address] [id number] [place] [address] 58778- 6488 May, [place] [address] [place] [address] [id number] [place] [place] [address] 85575- 0602 Apr, [place] [address] [place] [address] [id number] [place] [address] 24443- 8190 Apr, [place] [address] [place] [address] [id number] [place] [place] [address] 28865- 4004 Apr, Type 2 diabetes mellitus without complication, without long- term current use of insulin E11.9 ; Mood disorder F39 and Shortness of breath R06.02 [place] [address] [place] [address] [id number] [place] [address] 34658- 2206 Mar, Type 2 diabetes mellitus without complication, without long- term current use of insulin E11.9 [place] [address] [place] [address] [id number] [place] [address] 39576- 3133 Mar, Type 2 diabetes mellitus without complication, without long- term current use of insulin E11.9 [place] [address] [place] [address] [id number] [place] [address] 54543- 9407 Feb, Lumbar neuritis M54.16 [place] [address] [id number] [address]- 7657 Feb, Lumbar neuritis M54.16 ; Type 2 diabetes mellitus without complication, without long-term current use of insulin E11.9 ; Mood disorder F39 ; Pain in left hip M25.552 and Pain in right hip M25.551 [place] [address] [id number] [address]- 5259 Feb, Lumbar neuritis M54.16 ; Pain in left hip M25.552 ; Pain in right hip M25.551 ; Type 2 diabetes mellitus without complication, without long- term current use of insulin E11.9 and Mood disorder F39 [place] [address] [place] [address] 70667- 6525 Feb, IMMUNIZATIONS No Known Immunizations SOCIAL HISTORY Never Assessed REASON FOR VISIT oxycodone due 05/22 PLAN OF CARE VITAL SIGNS MEDICATIONS Medication Instructions Dosage Frequency Start Date End Date Duration Status Oxycodone HCl 30 MG Orally 2 times a day 0.5 - 1 tablet as needed 12h Apr, 28 days Active RESULTS No Results PROCEDURES No Known procedures [...]
--- OUTSIDE RECORDS SUMMARY | 2018-09-13 18:53 | XMS REPORT ---
Author Author SUZETTE BURT Organization [facility] Address [address] [place] [address] Care Team Providers Care Healthcare Consulting Manager Name Role Phone CARMELSUZETTE Unavailable PROBLEMS Type Condition ICD9-CM Code [id number]-[id number] Code Onset Dates Condition Status SNOMED Code Problem Mood disorder F39 Active 32796522 Problem Type 2 diabetes mellitus without complication, without long-term current use of insulin E11.9 Active 566830871 Problem Elevated liver enzymes R74.8 Active 355159692 ALLERGIES No Information ENCOUNTERS Encounter Location Date Diagnosis [place] [address] [place] [id number] [place] [address] 31333- 8521 Jun, Elevated liver enzymes R74.8 [facility] [id number] [place] [address] 23896- 8372 Jun, [facility] [id number] [place] [address] 76515- 9283 Jun, [facility] [id number] [place] [address] 31615- 5656 Jun, Elevated liver enzymes R74.8 [place] [address] 58764- 7160 Jun, Type 2 diabetes mellitus without complication, without long- term current use of insulin E11.9 ; Chest pain on exertion R07.9 and Elevated liver enzymes R74.8 [facility] [id number] [place] [address] 31295- 5355 Jun, Type 2 diabetes mellitus without complication, without long- term current use of insulin E11.9 ; Chest pain on exertion R07.9 and Elevated liver enzymes R74.8 [facility] [address] 94153- 4249 Jun, [place] [id number] [place] [address] 62844- 2132 Jun, [place] [address] [id number] [place] [address] 77744- 2464 Jun, Chest pain on exertion R07.9 and SOB (shortness of breath) R06.02 [place] [id number] [place] [address] 41534- 4231 May, [place] [id number] [place] [address] 48423- 0749 May, Lumbar neuritis M54.16 [place] [id number] [place] [address] 85893- 9590 May, Pain in right hip M25.551 [place] [id number] [place] [address] 38684- 8497 May, [place] [id number] [place] [address] 73493- 6952 Apr, [place] [id number] [place] [address] 84759- 1265 Apr, [place] [address] [id number] [place] [address] 15267- 6007 Apr, Type 2 diabetes mellitus without complication, without long- term current use of insulin E11.9 ; Mood disorder F39 and Shortness of breath R06.02 [place] [id number] [place] [address] 77659- 2167 Mar, Type 2 diabetes mellitus without complication, without long- term current use of insulin E11.9 [place] [id number] [place] [address] 75189- 3104 Mar, Type 2 diabetes mellitus without complication, without long- term current use of insulin E11.9 [place] [id number] [place] [address] 17444- 8776 Feb, Lumbar neuritis M54.16 [place] [address] [place] [id number] [address] 3436 Feb, Lumbar neuritis M54.16 ; Type 2 diabetes mellitus without complication, without long-term current use of insulin E11.9 ; Mood disorder F39 ; Pain in left hip M25.552 and Pain in right hip M25.551 [place] [address] [place] [id number], [place] [address]- 4772 Feb, Lumbar neuritis M54.16 ; Pain in left hip M25.552 ; Pain in right hip M25.551 ; Type 2 diabetes mellitus without complication, without long- term current use of insulin E11.9 and Mood disorder F39 [place] [address] [place] [address] [id number] [place] [address] 63823- 1190 Feb, IMMUNIZATIONS No Known Immunizations SOCIAL HISTORY Never Assessed REASON FOR VISIT Requests return call PLAN OF CARE VITAL SIGNS MEDICATIONS [...]
--- OUTSIDE RECORDS SUMMARY | 2018-09-13 18:54 | XMS REPORT ---
Author Author SUZETTE BURT Organization [facility] Address [address] [place] [address] Care Team Providers Care Catering Chef Name Role Phone CARMELSUZETTE Unavailable PROBLEMS Type Condition ICD9-CM Code XXY04-SL Code Onset Dates Condition Status SNOMED Code Problem Mood disorder F39 Active 77178127 Problem Type 2 diabetes mellitus without complication, without long-term current use of insulin E11.9 Active 698572097 Problem Elevated liver enzymes R74.8 Active 379382203 ALLERGIES No Information ENCOUNTERS Encounter Location Date Diagnosis [place] [id number] [place] [id number] [place] [address] 89453- 8526 Jun, Elevated liver enzymes R74.8 [facility] [id number] [place] [address] 90142- 7762 Jun, [facility] [id number] [place] [address] 01957- 1056 Jun, [facility] [id number] [place] [address] 06737- 7117 Jun, Elevated liver enzymes R74.8 [facility] [address] 77580- 1132 Jun, Type 2 diabetes mellitus without complication, without long- term current use of insulin E11.9 ; Chest pain on exertion R07.9 and Elevated liver enzymes R74.8 [facility] [id number] [place] [address] 72350- 1450 Jun, Type 2 diabetes mellitus without complication, without long- term current use of insulin E11.9 ; Chest pain on exertion R07.9 and Elevated liver enzymes R74.8 [facility] [address] 25634- 8820 Jun, [place] [id number] [place] [address] 89855- 1773 Jun, [place] [id number] [place] [address] 99288- 2366 Jun, Chest pain on exertion R07.9 and SOB (shortness of breath) R06.02 [place] [id number] [place] [address] 73206- 7232 May, [place] [id number] [place] [address] 73057- 7914 May, Lumbar neuritis M54.16 [place] [id number] [place] [address] 94386- 9887 May, Pain in right hip M25.551 [place] [id number] [place] [address] 18806- 2247 May, [place] [id number] [place] [address] 05603- 6545 Apr, [place] [id number] [place] [address] 99226- 3227 Apr, [place] [id number] [place] [address] 79568- 9626 Apr, Type 2 diabetes mellitus without complication, without long- term current use of insulin E11.9 ; Mood disorder F39 and Shortness of breath R06.02 [place] [id number] [place] [address] 89456- 5684 Mar, Type 2 diabetes mellitus without complication, without long- term current use of insulin E11.9 [place] [id number] [place] [address] 69061- 1360 Mar, Type 2 diabetes mellitus without complication, without long- term current use of insulin E11.9 [place] [id number] [place] [address] 14359- 0068 Feb, Lumbar neuritis M54.16 [place] [address] [place] [id number] [address]- 2904 Feb, Lumbar neuritis M54.16 ; Type 2 diabetes mellitus without complication, without long-term current use of insulin E11.9 ; Mood disorder F39 ; Pain in left hip M25.552 and Pain in right hip M25.551 [place] [address] [place] [id number] [address]- 2580 Feb, Lumbar neuritis M54.16 ; Pain in left hip M25.552 ; Pain in right hip M25.551 ; Type 2 diabetes mellitus without complication, without long- term current use of insulin E11.9 and Mood disorder F39 [place] [address] [id number], [place] [address]- 5413 Feb, IMMUNIZATIONS No Known Immunizations SOCIAL HISTORY Never Assessed REASON FOR VISIT Pharmacy for Controlled Meds PLAN OF CARE VITAL SIGNS MEDICATIONS Unknown [...]
--- OUTSIDE RECORDS SUMMARY | 2018-09-13 18:54 | XMS REPORT ---
Author Author SUZETTE BURT Organization [facility] Address [address] [place] [address] Care Team Providers Care Commercial Diver Name Role Phone CARMELSUZETTE Unavailable PROBLEMS Type Condition ICD9-CM Code PGC01-JG Code Onset Dates Condition Status SNOMED Code Problem Mood disorder F39 Active 67917526 Problem Type 2 diabetes mellitus without complication, without long-term current use of insulin E11.9 Active 199075298 Problem Elevated liver enzymes R74.8 Active 137244119 ALLERGIES No Information ENCOUNTERS Encounter Location Date Diagnosis [place] [address] [place] [id number] [place] [address] 53637- 7215 Jun, Elevated liver enzymes R74.8 [facility] [id number] [place] [address] 17072- 4877 Jun, [facility] [id number] [place] [address] 22195- 8970 Jun, [facility] [address] 66983- 6057 Jun, Elevated liver enzymes R74.8 [facility] [address] 66109- 2669 Jun, Type 2 diabetes mellitus without complication, without long- term current use of insulin E11.9 ; Chest pain on exertion R07.9 and Elevated liver enzymes R74.8 [facility] [id number] [place] [address] 24435- 9937 Jun, Type 2 diabetes mellitus without complication, without long- term current use of insulin E11.9 ; Chest pain on exertion R07.9 and Elevated liver enzymes R74.8 [facility] [address] 49491- 0009 Jun, [place] [address] [id number] [place] [address] 67289- 0131 Jun, [place] [address] [place] [address] [id number] [place] [address] 93844- 0504 Jun, Chest pain on exertion R07.9 and SOB (shortness of breath) R06.02 [place] [address] [id number] [place] [address] 97152- 1376 May, [place] [address] [place] [id number] [place] [address] 01951- 5016 May, Lumbar neuritis M54.16 [place] [address] [place] [id number] [place] [address] 61119- 1846 May, Pain in right hip M25.551 [place] [address] [place] [id number] [place] [address] 43267- 8643 May, [place] [address] [place] [address] [id number] [place] [address] 01185- 1580 Apr, [place] [address] [place] [address] [id number] [place] [address] 75246- 3204 Apr, [place] [address] [place] [address] [id number] [place] [address] 23220- 0965 Apr, Type 2 diabetes mellitus without complication, without long- term current use of insulin E11.9 ; Mood disorder F39 and Shortness of breath R06.02 [place] [address] [place] [id number] [place] [address] 58926- 0190 Mar, Type 2 diabetes mellitus without complication, without long- term current use of insulin E11.9 [place] [address] [place] [id number] [place] [address] 97030- 9610 Mar, Type 2 diabetes mellitus without complication, without long- term current use of insulin E11.9 [place] [address] [place] [id number] [place] [address] 39102- 3849 Feb, Lumbar neuritis M54.16 [place] [address] [place] [id number] [address]- 1205 Feb, Lumbar neuritis M54.16 ; Type 2 diabetes mellitus without complication, without long-term current use of insulin E11.9 ; Mood disorder F39 ; Pain in left hip M25.552 and Pain in right hip M25.551 [place] [address] [place] [id number] [address]- 5092 Feb, Lumbar neuritis M54.16 ; Pain in left hip M25.552 ; Pain in right hip M25.551 ; Type 2 diabetes mellitus without complication, without long- term current use of insulin E11.9 and Mood disorder F39 [place] [address] [place] [address] 12251- 5160 Feb, IMMUNIZATIONS No Known Immunizations SOCIAL HISTORY Never Assessed REASON FOR VISIT Oxycodone 06/21 PLAN OF CARE VITAL SIGNS MEDICATIONS Medication Instructions Dosage Frequency Start Date End Date Duration Status Oxycodone HCl 30 MG Orally 2 times a day 0.5 - 1 tablet as needed 12h May, 28 days Active RESULTS No Results PROCEDURES [...]
--- OUTSIDE RECORDS SUMMARY | 2018-09-13 18:54 | XMS REPORT ---
Author Author SUZETTE BURT Organization [facility] Address [address] [place] [address] Care Team Providers Care Hydraulic Blocker Name Role Phone SUZETTE BURT Unavailable PROBLEMS Type Condition ICD9-CM Code IHZ96-KN Code Onset Dates Condition Status SNOMED Code Problem Mood disorder F39 Active 62960658 Problem Type 2 diabetes mellitus without complication, without long-term current use of insulin E11.9 Active 640301423 Problem Elevated liver enzymes R74.8 Active 246684968 ALLERGIES No Information ENCOUNTERS Encounter Location Date Diagnosis [place] [id number] [place] [address] 99120- 4775 Dec, [place] [address] 42658- 3817 Jun, Elevated liver enzymes R74.8 [facility] [id number] [place] [address] 06273- 6971 Jun, [place] [address] [id number] [place] [address] 16041- 0805 Jun, [place] [address] [place] [id number] [place] [address] 74516- 3583 Jun, Elevated liver enzymes R74.8 [facility] [id number] [place] [address] 60247- 8308 Jun, Type 2 diabetes mellitus without complication, without long- term current use of insulin E11.9 ; Chest pain on exertion R07.9 and Elevated liver enzymes R74.8 [place] [address] [id number] [place] [address] 30076- 1663 Jun, Type 2 diabetes mellitus without complication, without long- term current use of insulin E11.9 ; Chest pain on exertion R07.9 and Elevated liver enzymes R74.8 [facility] [address], [place] [address]- 4274 Jun, [facility] [address] [place] [id number] [place] [address] 00040- 1116 Jun, [facility] [address] [id number] [place] [address] 42956- 9905 Jun, Chest pain on exertion R07.9 and SOB (shortness of breath) R06.02 [facility] [address] [id number] [place] [address] 53657- 9803 May, [place] [address] [id number] [place] [address] 35924- 4233 May, Lumbar neuritis M54.16 [place] [address] [id number] [place] [address] 73725- 0177 May, Pain in right hip M25.551 [place] [address] [id number] [place] [address] 23878- 2277 May, [facility] [address] [id number] [place] [address] 00606- 3553 Apr, [place] [address] [id number] [place] [address] 83529- 8021 Apr, [place] [address] [place] [address] 06138- 5920 Apr, Type 2 diabetes mellitus without complication, without long- term current use of insulin E11.9 ; Mood disorder F39 and Shortness of breath R06.02 [facility] [address] [address]- 4659 Mar, Type 2 diabetes mellitus without complication, without long- term current use of insulin E11.9 [facility] [address], [place] [address]- 5863 Mar, Type 2 diabetes mellitus without complication, without long- term current use of insulin E11.9 [place] [address] [place] [id number], [place] [address]- 1900 Feb, Lumbar neuritis M54.16 [place] [address] [place] [address] 78433- 5116 Feb, Lumbar neuritis M54.16 ; Type 2 diabetes mellitus without complication, without long-term current use of insulin E11.9 ; Mood disorder F39 ; Pain in left hip M25.552 and Pain in right hip M25.551 [place] [address] [place] [address] 70359- 6217 Feb, Lumbar neuritis M54.16 ; Pain in left hip M25.552 ; Pain in right hip M25.551 ; Type 2 diabetes mellitus without complication, without long- term current use of insulin E11.9 and Mood disorder F39 [address] [place] [address] 56934- 5266 Feb, IMMUNIZATIONS No Known Immunizations SOCIAL HISTORY Never Assessed REASON FOR VISIT Controlled Med Refill PLAN OF CARE VITAL SIGNS MEDICATIONS Medication Instructions Dosage Frequency Start Date End Date Duration Status Fenofibrate Micronized 134 MG Orally Once a day 1 capsule with a meal 24h Feb, 30 day(s) Active Oxycodone HCl 30 MG Orally 2 times a day 0.5 - 1 tablet as needed 12h Feb, 28 days Active Amlodipine Besylate 10 MG Orally Once a day 1 tablet 24h 30 days Active Desoximetasone 0.25 % Externally Twice a day 1 application to affected area 12h Active RESULTS No Results PROCEDURES No Known [...]
[2018-09-13] MEDS ORDERED: NS IV 1000 ML 1,000 ML ONE (19:02)
[2018-09-13] MEDS ORDERED: TETANUS,DIPTH,PERTUSS P/F (BOOSTRIX) 0.5 ML VIAL IM ONE ×2 (19:02→19:15)
[2018-09-13] MEDS ORDERED: NS IV 1000 ML 1,000 ML IV SCH (19:08)
[2018-09-13 19:14] LABS: MEAN PLATELET VOLUME 10.4 FL (7.4-10.4); RED CELL DISTRIBUTION WIDTH 15.1 % (10.0-14.5); WHITE BLOOD COUNT 9.3 10^3/uL (4.3-11.0)
[2018-09-13] MEDS ORDERED: LIDOCAINE/EPI 2% 1:100,00 (XYLOCAINE) 20 ML VIAL INJ ONE (19:15)
[2018-09-13] MEDS ORDERED: ceFAZolin INJECTION 1,000 MG in WATER (STERILE) FOR INJECTION 10 ML IV ONE (19:15)
[2018-09-13] MEDS ORDERED: HYDROmorphone 2 MG/ML VIAL (DILAUDID) IVP ONE ×2 (19:15→20:45)
[2018-09-13 19:17] LABS: BILIRUBIN,URINE NEGATIVE (NEGATIVE); CLARITY,URINE CLEAR; COLOR,URINE YELLOW; GLUCOSE, URINE (UA) NEGATIVE (NEGATIVE); KETONES,URINE NEGATIVE (NEGATIVE); LEUKOCYTE ESTERASE ,URINE NEGATIVE (NEGATIVE); NITRITE,URINE NEGATIVE (NEGATIVE); PH,URINE 5 (5-9); PROTEIN,URINE 1+ (NEGATIVE); UROBILINOGEN,URINE NORMAL (NORMAL)
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
[2018-09-13 19:24] LABS: WBC,URINE RARE /HPF
[2018-09-13 19:25] LABS: BACTERIA,URINE NEGATIVE /HPF; SQUAMOUS EPITHELIAL CELL,UR 0-2 /HPF
[2018-09-13 19:30] LABS: ALANINE AMINOTRANSFERASE 53 U/L (0-55); ALBUMIN 4.6 GM/DL (3.2-4.5); ALKALINE PHOSPHATASE 60 U/L (40-136); BILIRUBIN,DIRECT 0.1 MG/DL (0.0-0.3); BILIRUBIN,INDIRECT 0.3 MG/DL; BILIRUBIN,TOTAL 0.4 MG/DL (0.1-1.0); BUN/CREATININE RATIO 23; CALCIUM 11.5 MG/DL (8.5-10.1); CARBON DIOXIDE 19 MMOL/L (21-32); CHLORIDE 104 MMOL/L (98-107); CREATININE SERUM 1.31 MG/DL (0.60-1.30); GFR ESTIMATED 54; GLUCOSE 161 MG/DL (70-105); POTASSIUM 4.5 MMOL/L (3.6-5.0); SODIUM 137 MMOL/L (135-145); TOTAL PROTEIN 8.6 GM/DL (6.4-8.2)
[2018-09-13] MEDS ORDERED: HOLD METFORMIN - RECEIVED CONTRAST 20 ML VIAL IV SCH (19:30)
[2018-09-13] MEDS ORDERED: IOHEXOL 350 MG/ML 100 ML (OMNIPAQUE 350) VIAL IV ONE (19:30)
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
--- NOTE | 2018-09-13 21:32 | NUR ---
PT FAMILY AT BEDSIDE.
[2018-09-13] MEDS ORDERED: CYCLOBENZAPRINE 10 MG (FLEXERIL) TAB PO SCH (22:00)
[2018-09-13] MEDS ORDERED: HYDROmorphone 2 MG/ML VIAL (DILAUDID) IV ONE ×2 (22:30→22:45)
[2018-09-13 22:51] VITALS: BP 111/74
== END 2018-09-13 22:50 | disposition short-term general hospital (02) ==
LOC: EDUNIT# 18:47 → ER 18:48
DX: S01.81XA Laceration without foreign body of other part of head, initial encounter (principal); S06.5X0A Traumatic subdural hemorrhage without loss of consciousness, initial encounter; M54.6 Pain in thoracic spine; K21.9 Gastro-esophageal reflux disease without esophagitis; R40.2142 Coma scale, eyes open, spontaneous, at arrival to emergency department; R40.2252 Coma scale, best verbal response, oriented, at arrival to emergency department; R40.2362 Coma scale, best motor response, obeys commands, at arrival to emergency department; Z23 Encounter for immunization; Z95.1 Presence of aortocoronary bypass graft; Z87.448 Personal history of other diseases of urinary system; Z79.02 Long term (current) use of antithrombotics/antiplatelets; V69.40XA Driver of heavy transport vehicle injured in collision with unspecified motor vehicles in traffic accident, initial encounter
CPT/HCPCS: 12053; 36415; 51702; 70450; 70486; 71045; 71260; 72125; 72128; 72131; 72170; 74177; 80048; 80076; 80320; 81000; 85027; 86850; 86900; 86901; 90715; 93041; 99291

== ENCOUNTER 2020-06-17 11:04 | Emergency (ER) | payer MEDICARE ==
[~2020-06-17] VITALS: Ht 167.7 cm; Wt 110.2 kg
--- NOTE | 2020-06-17 11:56 | ED Back Pain ---
General Chief Complaint: Back Problems Stated Complaint: N/V, MUSCLE ACHES, L BACK PAIN Source of Information: Patient Exam Limitations: No Limitations History of Present Illness Date Seen by Provider: Jun 17, 2020 Time Seen by Provider: 11:52 Initial Comments This is a 70 yo male who presented to ED with right sided back pain. States he has had kidney stones in the past and this feels similar to the last time he had a kidney stone. States the pain is causing him to be nauseous and vomit. Rates at 10/10, sharp, constant, and localized over his right flank. He reports taking Hydrocodone 10/325mg tablets TID for chronic pain, and this does not help his pain. Denies fever, chills, cough, chest pain, shortness of breath, nausea/vomiting/diarrhea, abdominal pain, dysuria, or hematuria. Allergies and Home Medications Allergies Coded Allergies: No Known Drug Allergies (Verified Allergy, Unknown, 08/05/09) Home Medications Amlodipine Besylate 10 Mg Tablet, 10 MG PO DAILY, (Reported) Cyclobenzaprine HCl 10 Mg Tablet, 10 MG PO Q8H PRN for SPASMS Prescribed by: MORA LONGO on 06/17/20 1423 Omeprazole 20 Mg Capsule.dr, 20 MG PO DAILY, (Reported) Patient Home Medication List Home Medication List Reviewed: Yes Review of Systems Constitutional: no symptoms reported EENTM: no symptoms reported Respiratory: no symptoms reported Cardiovascular: no symptoms reported Gastrointestinal: see HPI Genitourinary: no symptoms reported Musculoskeletal: no symptoms reported Skin: see HPI Psychiatric/Neurological: No Symptoms Reported Past Acwwbzg-Siwseg-Akdewi Hx Patient Social History Former Smoker, Quit: May 21, 2007 Immunizations Up To Date Tetanus Booster (TDap): More than 5yrs Past Medical History CABG Respiratory: No Cardiac: Yes (CAD, CABGX4, HEART CATH) High Cholesterol, Hypertension Neurological: No Reproductive Disorders: No Sexually Transmitted Disease: No Genitourinary: Yes Prostate Problems Gastrointestinal: No Musculoskeletal: No Endocrine: Yes Diabetes, Non-Insulin dep Cancer: Yes Skin Psychosocial: No Integumentary: No Blood Disorders: No Physical Exam Vital Signs Vital Signs - First Documented 06/17/20 13:10 Temp 37.9 Pulse 78 Resp 20 B/P (MAP) 171/82 (111) Pulse Ox 98 O2 Delivery Room Air Capillary Refill : Height, Weight, BMI Height: 5'6.00" Weight: 256lbs. oz. 116.178956yi; 35.15 BMI Method:Stated General Appearance: No Apparent Distress, WD/WN HEENT: PERRL/EOMI, Moist Mucous Membranes Neck: Full Range of Motion, Normal Inspection Cardiovascular: Regular Rate, Rhythm, No Gallop, Normal Peripheral Pulses Respiratory: Lungs Clear, Normal Breath Sounds, No Accessory Muscle Use Gastrointestinal: Normal Bowel Sounds, No Pulsatile Mass, Non Tender, Soft Back: Normal Inspection, CVA Tenderness (R); No Vertebral Tenderness Extremity: Normal Capillary Refill, Normal Inspection, Normal Range of Motion, Pedal Edema Neurologic/Psychiatric: Alert, Oriented x3, No Motor/Sensory Deficits, Normal Mood/Affect Skin: Normal Color, Warm/Dry Procedures/Interventions Suture Size: 4-0 Progress/Results/Core Measures Results/Orders Lab Results Laboratory Tests Test 06/17/20 11:45 Range/Units White Blood Count 11.7 H 4.3-11.0 10^3/uL Red Blood Count 5.26 4.30-5.52 10^6/uL Hemoglobin 16.6 13.3-17.7 g/dL Hematocrit 49 40-54 % Mean Corpuscular Volume 94 80-99 fL Mean Corpuscular Hemoglobin 32 25-34 pg Mean Corpuscular Hemoglobin Concent 34 32-36 g/dL Red Cell Distribution Width 14.0 10.0-14.5 % Platelet Count 210 130-400 10^3/uL Mean Platelet Volume 10.2 9.0-12.2 fL Immature Granulocyte % (Auto) 0 % Neutrophils (%) (Auto) 74 42-75 % Lymphocytes (%) (Auto) 16 12-44 % Monocytes (%) (Auto) 7 0-12 % Eosinophils (%) (Auto) 1 0-10 % Basophils (%) (Auto) 1 0-10 % Neutrophils # (Auto) 8.7 H 1.8-7.8 10^3/uL Lymphocytes # (Auto) 1.9 1.0-4.0 10^3/uL Monocytes # (Auto) 0.9 0.0-1.0 10^3/uL Eosinophils # (Auto) 0.2 0.0-0.3 10^3/uL Basophils # (Auto) 0.1 0.0-0.1 10^3/uL Immature Granulocyte # (Auto) 0.1 0.0-0.1 10^3/uL Sodium Level 133 L 135-145 MMOL/L Potassium Level 4.7 3.6-5.0 MMOL/L Chloride Level 98 98-107 MMOL/L Carbon Dioxide Level 23 21-32 MMOL/L Anion Gap 12 5-14 MMOL/L Blood Urea Nitrogen 18 7-18 MG/DL Creatinine 1.10 0.60-1.30 MG/DL Estimat Glomerular Filtration Rate > 60 BUN/Creatinine Ratio 16 Glucose Level 141 H 70-105 MG/DL Calcium Level 10.1 8.5-10.1 MG/DL Corrected Calcium 8.5-10.1 MG/DL Total Bilirubin 0.4 0.1-1.0 MG/DL Aspartate Amino Transf (AST/SGOT) 25 5-34 U/L Alanine Aminotransferase (ALT/SGPT) 28 0-55 U/L Alkaline Phosphatase 74 40-136 U/L Total Protein 8.6 H 6.4-8.2 GM/DL Albumin 4.6 H 3.2-4.5 GM/DL My Orders Orders - MORA LONGO CHIEF ACCOUNTING OFFICER Ct Abd/Pelvis Wo(Kidney Stone) (06/17/20 11:54) Abdomen/Kub 1view (06/17/20 11:54) Ed Iv/Invasive Line Start (06/17/20 11:54) Ketorolac Injection (Toradol Injection) (06/17/20 12:00) Fentanyl Injection (Sublimaze Injection (06/17/20 12:00) Ondansetron Injection (Zofran Injectio (06/17/20 12:15) Hydromorphone Injection (Dilaudid Inject (06/17/20 13:00) Cbc With Automated Diff (06/17/20 12:48) Comprehensive Metabolic Panel (06/17/20 12:48) Hydromorphone Injection (Dilaudid Inject (06/17/20 13:45) Orphenadrine Inj (Ed Only) (Norflex Inje (06/17/20 13:45) Lumbar Spine - 2-3 Views (06/17/20 13:40) Medications Given in ED Vital Signs/I&O 06/17/20 06/17/20 13:10 14:53 Temp 37.9 37.3 Pulse 78 85 Resp 20 18 B/P (MAP) 171/82 (111) 180/97 Pulse Ox 98 94 O2 Delivery Room Air Room Air Progress Progress Note : Progress Note Pt. examined and in no acute distress. Initiated renal stone workup upon arrival. Orders placed for Fentanyl 50mcg and Zofran 4mg IVP for pain and nausea. VSS. States he has an appointment with Dr. Khoury today at 3:00pm and wants to make sure he will not miss this. Labs reviewed, slight elevation in WBC but are otherwise unremarkable. Reported no relief with Fentanyl. Orders given for Dilaudid 1mg IVP as he likely has to lerance due to TID use of [place]. KUB is unremarkable. CT abd/pelvis shows stones in the right kidney but no ureteral obstruction or hydronephrosis. Reports some relief in pain with Dilaudid, 01/05 now. Completed another focused exam, and now states pain appears to be more around his right SI joint and feels like a "pulled muscle". 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 Offered obtain x-ray to check for any acute fractures in the low back; he is willing to do this. Orders placed for lumbar spine x-ray, Dilaudid 1mg IVP, and Norflex 60mg IM. Lumbar x-rays show NAD. Reported feeling much improved. He did not provided UA today. Discussed keeping his f/u with Dr. Khoury at 3:00pm and following up with his PCP for his back pain. If he has any new or worsening symptoms he can return to ED. He verbalized understanding. Reviewed discharge POC and he is agreeable with plan. Diagnostic Imaging Diagonstic Imaging: Xray Plain Films/CT/US/NM/MRI: abdomen Comments NAME: REGINADLO ALBARADO [facility] REC#: [id number] PT STATUS: DEP ER : 1950 PHYSICIAN: MORA LONGO CHIEF ACCOUNTING OFFICER ADMIT DATE: 06/17/20/ER Signed Date of Exam:06/17/20 ABDOMEN/KUB 1VIEW Indication: Nephrolithiasis. Findings: Lap band in the left upper quadrant appeared properly oriented. Pelvic vascular calcifications noted. No suspicious radiopaque urinary tract stone. Impression: Lap band projects in good alignment. No suspicious calcifications identified. Dictated by: Dictated on workstation # [id number] Dict: 06/17/20 1302 Trans: 06/17/20 1536 CVB [id number] Interpreted by: ROSELYN MONTEJO Electronically signed by: ROSELYN MONTEJO 06/17/20 1536 Reviewed: Reviewed by Me Zuluagagonsrobi Imaging: CT Plain Films/CT/US/NM/MRI: abdomen Comments NAME: REGINALDO ALBARADO [facility] REC#: [id number] PT STATUS: REG ER : 1950 PHYSICIAN: MORA LONGO CHIEF ACCOUNTING OFFICER ADMIT DATE: 06/17/20/ER Signed Date of Exam:06/17/20 CT ABD/PELVIS WO(KIDNEY STONE) INDICATION: Right flank pain, history of kidney stones. COMPARISON: 09/13/2018. TECHNIQUE: Multiple contiguous axial images were obtained through the abdomen and pelvis without the use of intravenous contrast. Auto Exposure Controls were utilized during the CT exam to meet ALARA standards for radiation dose reduction. FINDINGS: The visualized portions of the lung bases are clear. There are no pleural fluid collections. There is no free intraperitoneal air. The liver shows diffuse low-density change, compatible with fatty infiltration. There is no focal liver lesion. The gallbladder appears normal. The spleen, adrenals, and pancreas are normal. The kidneys bilaterally show no mass lesion or hydronephrosis. There are tiny calcifications in the right kidney. There is no ureteral stone or hydronephrosis. There is no retroperitoneal mass or adenopathy. There is no ascites or abnormal fluid collection. The visualized bowel loops show no sign of obstruction or focal bowel wall thickening. The appendix appears normal. The patient has a laparoscopic band in place. There is no pelvic mass or lymphadenopathy. IMPRESSION: Diffuse fatty infiltration of the liver. Punctate calcifications in the right kidney are seen but there is no hydronephrosis or ureteral stone. The patient has a previous laparoscopic band in place. There is no acute appearing abnormality. Dictated by: Dictated on workstation # [id number] Dict: 06/17/20 1232 Trans: 06/17/20 1301 [id number] Interpreted by: BRENNA CHO MD Electronically signed by: BRENNA CHO MD 06/17/20 1301 Reviewed: Reviewed by Me Diagonstic Imaging: Xray Comments NAME: REGINALDO ALBARADO [facility] REC#: [id number] PT STATUS: DEP ER : 1950 PHYSICIAN: MORA LONGO APRN ADMIT DATE: 06/17/20/ER Signed Date of Exam:06/17/20 LUMBAR SPINE - 2-3 VIEWS CLINICAL INDICATION: Patient with muscle aches and low back pain. EXAM: X-ray of the lumbar spine, 3 views. COMPARISON: CT scan of the thoracic and lumbar spine without contrast dated 09/13/2018. FINDINGS: There is no acute lumbar spine fracture or dislocation. There is mild left curvature of the thoracolumbar spine. There is facet arthropathy/hypertrophy and sclerosis of the mid to lower lumbar spine. There are hypertrophic spurs throughout the lumbar spine, most pronounced at the thoracolumbar region. There is no significant change in the loss of disk space height which is mild at the T12-L1 level, L4-L5, and L5-S1 levels but moderate at the L2-L3 level and mild to moderate at the L3-L4 level. The sacroiliac joints show no significant abnormality. Vascular calcifications are seen in the pelvis. A gastric band device is noted overlying the abdomen. IMPRESSION: 1: There is no acute lumbar spine fracture or dislocation. 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 Dictated by: Dictated on workstation # [id number] Dict: 06/17/20 1409 Trans: 06/17/20 1737 [id number] Interpreted by: ROGER FU MD Electronically signed by: ROGER FU MD 06/17/20 1737 Departure Impression Primary Impression: Muscle strain Disposition: HOME, SELF-CARE Condition: Improved Departure-Patient Inst. Decision time for Depature: 14:21 Referrals: JAKI SANCHEZ MD (PCP/Family) Primary Care Physician Patient Instructions: Back Muscle Strain (DC) Add. Discharge Instructions: Plan: 1. Discharge home. 2. Rest, ice 20 minutes followed by heat for 20 minutes at a time every couple of hours for pain. 3. May take Flexeril 10mg by mouth every 8 hours as needed for pain. 4. Follow up with your primary care provider if symptoms persist. 5. Return to ER for any new or concerning symptoms. All discharge instructions reviewed with patient and/or family. Voiced understanding. Scripts Cyclobenzaprine HCl (Cyclobenzaprine HCl) 10 Mg Tablet 10 MG PO Q8H PRN for SPASMS, #15 TAB 0 Refills Prov: MORA LONGO APRN 06/17/20 Copy Copies To 1: VICTORIA KHOURY MD, STORMY D APRN Jun 17, 2020 11:56
[2020-06-17] MEDS ORDERED: KETOROLAC 30 MG/ML VIAL IV ONE (12:00)
[2020-06-17] MEDS ORDERED: fentaNYL INJECTION 100 MCG/2 ML AMP IVP ONE (12:00)
[2020-06-17] MEDS ORDERED: ONDANSETRON 4 MG/2 ML (SDV) Z0FRAN IVP ONE (12:15)
--- NOTE | 2020-06-17 12:40 | Diagnostic Imaging Report ---
INDICATION: Right flank pain, history of kidney stones. COMPARISON: 09/13/2018. TECHNIQUE: Multiple contiguous axial images were obtained through the abdomen and pelvis without the use of intravenous contrast. Auto Exposure Controls were utilized during the CT exam to meet ALARA standards for radiation dose reduction. FINDINGS: The visualized portions of the lung bases are clear. There are no pleural fluid collections. There is no free intraperitoneal air. The liver shows diffuse low-density change, compatible with fatty infiltration. There is no focal liver lesion. The gallbladder appears normal. The spleen, adrenals, and pancreas are normal. The kidneys bilaterally show no mass lesion or hydronephrosis. There are tiny calcifications in the right kidney. There is no ureteral stone or hydronephrosis. There is no retroperitoneal mass or adenopathy. There is no ascites or abnormal fluid collection. The visualized bowel loops show no sign of obstruction or focal bowel wall thickening. The appendix appears normal. The patient has a laparoscopic band in place. There is no pelvic mass or lymphadenopathy. IMPRESSION: Diffuse fatty infiltration of the liver. Punctate calcifications in the right kidney are seen but there is no hydronephrosis or ureteral stone. The patient has a previous laparoscopic band in place. There is no acute appearing abnormality. Dictated by: Dictated on workstation # [id number]
[2020-06-17 12:55] LABS: BASOPHILS # (AUTO) 0.1 10^3/uL (0.0-0.1); BASOPHILS % (AUTO) 1 % (0-10); EOSINOPHILS # (AUTO) 0.2 10^3/uL (0.0-0.3); EOSINOPHILS % (AUTO) 1 % (0-10); HEMATOCRIT 49 % (40-54); HEMOGLOBIN 16.6 g/dL (13.3-17.7); LYMPHOCYTES # (AUTO) 1.9 10^3/uL (1.0-4.0); LYMPHOCYTES % (AUTO) 16 % (12-44); MEAN CORPUSCULAR HEMOGLOBIN 32 pg (25-34); MEAN CORPUSCULAR HGB CONC 34 g/dL (32-36); MEAN CORPUSCULAR VOLUME 94 fL (80-99); MEAN PLATELET VOLUME 10.2 fL (9.0-12.2); MONOCYTES # (AUTO) 0.9 10^3/uL (0.0-1.0); MONOCYTES % (AUTO) 7 % (0-12); NEUTROPHILS # (AUTO) 8.7 10^3/uL (1.8-7.8); NEUTROPHILS % (AUTO) 74 % (42-75); PLATELET COUNT 210 10^3/uL (130-400); WHITE BLOOD COUNT 11.7 10^3/uL (4.3-11.0)
[2020-06-17] MEDS ORDERED: HYDROmorphone 2 MG/ML VIAL (DILAUDID) IV ONE ×2 (13:00→13:45)
--- NOTE | 2020-06-17 13:06 | Diagnostic Imaging Report ---
Indication: Nephrolithiasis. Findings: Lap band in the left upper quadrant appeared properly oriented. Pelvic vascular calcifications noted. No suspicious radiopaque urinary tract stone. Impression: Lap band projects in good alignment. No suspicious calcifications identified. Dictated by: Dictated on workstation # [id number]
[2020-06-17 13:12] LABS: ALANINE AMINOTRANSFERASE 28 U/L (0-55); ALBUMIN 4.6 GM/DL (3.2-4.5); ALKALINE PHOSPHATASE 74 U/L (40-136); BILIRUBIN,TOTAL 0.4 MG/DL (0.1-1.0); BUN/CREATININE RATIO 16; CALCIUM 10.1 MG/DL (8.5-10.1); CARBON DIOXIDE 23 MMOL/L (21-32); CHLORIDE 98 MMOL/L (98-107); GFR ESTIMATED > 60; GLUCOSE 141 MG/DL (70-105); POTASSIUM 4.7 MMOL/L (3.6-5.0); SODIUM 133 MMOL/L (135-145); TOTAL PROTEIN 8.6 GM/DL (6.4-8.2)
[2020-06-17] MEDS ORDERED: ORPHENADRINE 60 MG/2 ML (NORFLEX) AMP (ED ONLY) IM ONE (13:45)
--- NOTE | 2020-06-17 14:15 | Diagnostic Imaging Report ---
CLINICAL INDICATION: Patient with muscle aches and low back pain. EXAM: X-ray of the lumbar spine, 3 views. COMPARISON: CT scan of the thoracic and lumbar spine without contrast dated 09/13/2018. FINDINGS: There is no acute lumbar spine fracture or dislocation. There is mild left curvature of the thoracolumbar spine. There is facet arthropathy/hypertrophy and sclerosis of the mid to lower lumbar spine. There are hypertrophic spurs throughout the lumbar spine, most pronounced at the thoracolumbar region. There is no significant change in the loss of disk space height which is mild at the T12-L1 level, L4-L5, and L5-S1 levels but moderate at the L2-L3 level and mild to moderate at the L3-L4 level. The sacroiliac joints show no significant abnormality. Vascular calcifications are seen in the pelvis. A gastric band device is noted overlying the abdomen. IMPRESSION: 1: There is no acute lumbar spine fracture or dislocation. 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 Dictated by: Dictated on workstation # [id number]
[2020-06-17] MEDS ORDERED: CYCL10TA9 PO (14:23)
[2020-06-17 14:53] VITALS: BP 180/97
== END 2020-06-17 14:53 | disposition home or self-care (01) ==
LOC: EDUNIT# 11:04 → ER 11:06
DX: S39.012A Strain of muscle, fascia and tendon of lower back, initial encounter (principal); I10 Essential (primary) hypertension; Z85.828 Personal history of other malignant neoplasm of skin; Z95.1 Presence of aortocoronary bypass graft; Z95.9 Presence of cardiac and vascular implant and graft, unspecified; Z87.891 Personal history of nicotine dependence; X58.XXXA Exposure to other specified factors, initial encounter
CPT/HCPCS: 36415; 72100; 74018; 74176; 80053; 85025

== ENCOUNTER → 2021-09-07 | Outpatient (CLI) | payer MEDICARE ==
[~2021-09-07] MED LIST changes: +CYCL10TA25 PO
--- NOTE | 2021-09-07 13:10 | Diagnostic Imaging Report ---
PROCEDURE: US Scrotum. TECHNIQUE: Multiple Real-time grayscale images were obtained over the scrotum in various projections bilaterally. INDICATION: Bilateral hydroceles. FINDINGS: The right testicle measures 4.5 x 2.9 x 2.9 cm and the left testicle measures 4.1 x 2.7 x 3.1 cm. The testes show homogeneous echotexture. No testicular mass is seen. There is blood flow to both testes. The epididymides were not well visualized. There are large hydroceles bilaterally, slightly greater on the right. There is complexity with internal echoes to the hydroceles bilaterally as well as some septations. No varicocele is seen. IMPRESSION: 1. No evidence of testicular mass or vascular compromise. 2. Large bilateral complex hydroceles. This could be secondary to pyocele or hematocele. Dictated by: Dictated on workstation # [id number]
== END ==
LOC: RAD 12:00
PROVIDERS: ATTEND Urology
DX: N43.3 Hydrocele, unspecified (principal)
CPT/HCPCS: 76870

== ENCOUNTER → 2021-09-30 | Outpatient (CLI) | payer MEDICARE ==
[~2021-09-30] VITALS: Ht 172 cm; Wt 112.0 kg
== END | disposition home or self-care (01) ==
LOC: PREOP 05:33
PROVIDERS: ATTEND Urology
DX: Z01.818 Encounter for other preprocedural examination (principal)

== ENCOUNTER 2021-10-06 07:46 | Day surgery (SDC) | payer MEDICARE ==
[2021-10-06] VITALS (11 sets, daily range): BP systolic 143–177; BP diastolic 78–99
[~2021-10-06] VITALS: Ht 172 cm; Wt 112.0 kg
--- NOTE | 2021-10-06 08:23 | Progress Note-Pre Operative ---
Pre-Operative Progress Note H&P Reviewed The H&P was reviewed, patient examined and no changes noted. Date Seen by Provider: October 06, 2021 Time Seen by Provider: 08:23 Date H&P Reviewed: October 06, 2021 Time H&P Reviewed: 08:23 Pre-Operative Diagnosis: BILATERAL HYDROCELES VICTORIA KHOURY MD October 06, 2021 08:23
--- NOTE | 2021-10-06 08:24 | Progress Note-Post Operative ---
Post-Operative Progess Note Surgeon (s)/Mica Machine Operator (s) Surgeon VICTORIA KHOURY MD Mica Machine Operator: NONE Pre-Operative Diagnosis BILATERAL HYDROCELES Post-Operative Diagnosis SAME AND BILATERAL SPERMATOCELES Procedure & Operative Findings Date of Procedure 10/06/21 Procedure Performed/Findings BILATERAL HYDROCELECTOMY AND BILATERAL SPERMATOCELECTOMY Anesthesia Type GENERAL Estimated Blood Loss Estimated blood loss (mL): LESS THAN 50cc Specimens/Packing Specimens Removed BILATERAL SPERMATOCELE SACS Packin/# DAVIN DRAINS VICTORIA KHOURY MD October 06, 2021 08:24
--- NOTE | 2021-10-06 08:27 | Discharge Inst-Urology ---
Discharge Inst-Urology Reconcile Patient Problems Problems Reviewed?: Yes Final Diagnosis BILATERAL HYDROCELES Patient Instructions/Follow Up Plan/Assessment/Instructions Please make appointment to been seen in office in 2 weeks. Rest till then and scrotal support Ice to scrotum in RR and at home for 6 hours and then PRN Keep bowels soft and moving Come to office tomorrow 9am to DC drains then may start showers, no bath Increase oral fluids for 48 hours and then as needed. Diet as tolerated. If questions or concerns contact your physician Or seek help at emergency department. VICTORIA KHOURY MD October 06, 2021 08:27
[2021-10-06] MEDS ORDERED: ceFAZolin INJECTION 1,000 MG ONE (08:37)
[2021-10-06] MEDS: LACTATED RINGERS 1,000 ML IV PRN ×2 (08:40→11:15)
[2021-10-06] MEDS ORDERED: inSUlin (REGULAR) HUMAN 1 UNIT/0.01 ML (CHARGE PER UNIT) ONE ×2 (08:42→09:20)
[2021-10-06] MEDS ORDERED: inSUlin (REGULAR) HUMAN 1 UNIT/0.01 ML (CHARGE PER UNIT) SC ONE ×2 (08:45→09:30)
[2021-10-06] MEDS ORDERED: ceFAZolin INJECTION 1,000 MG VIAL IV ONE (09:30)
[2021-10-06] MEDS ORDERED: inSUlin (REGULAR) HUMAN 1 UNIT/0.01 ML (CHARGE PER UNIT) IV ONE ×4 (09:45)
[2021-10-06] MEDS ORDERED: fentaNYL INJ 100 MCG/2 ML AMP ONE (09:56)
[2021-10-06] MEDS ORDERED: ONDANSETRON 4 MG/2 ML (SDV) Z0FRAN ONE ×2 (09:56→11:47)
[2021-10-06] MEDS ORDERED: proPOfol 200 MG/20 ML (DIPRIVAN) VIAL IV ONE (09:56)
[2021-10-06] MEDS ORDERED: LIDOCAINE PF 2% 5 ML (XYLOCAINE) VIAL ONE (09:56)
[2021-10-06] MEDS ORDERED: SEVOFLURANE (ULTANE) 15 ML INHAL SOLN ONE (11:13)
[2021-10-06] MEDS ORDERED: morphine INJ 10 MG/ML 1ML (SYR OR VIAL) ONE (11:30)
--- NOTE | 2021-10-06 11:34 | Anesthesia-General Post-Op ---
General Patient Condition Mental Status/LOC: Same as Preop Cardiovascular: Satisfactory Nausea/Vomiting: Absent Respiratory: Satisfactory Pain: Controlled Complications: Absent Post Op Complications Complications None Follow Up Care/Instructions Patient Instructions None needed. Anesthesia/Patient Condition Patient Condition Patient is doing well, no complaints, stable vital signs, no apparent adverse anesthesia problems. No complications reported per nursing. CHARY LA CRNA October 06, 2021 11:34
[2021-10-06] MEDS ORDERED: morphine INJ 10 MG/ML 1ML (SYR OR VIAL) IVP ONE (11:45)
[2021-10-06] MEDS ORDERED: MEPERIDINE (DEMEROL) INJ 50 MG/ML IVP ONE (11:45)
[2021-10-06] MEDS ORDERED: ONDANSETRON 4 MG/2 ML (SDV) Z0FRAN IVP PRN (11:45)
[2021-10-06] MEDS ORDERED: HYDROmorphone 2 MG/ML VIAL (DILAUDID) ONE (11:47)
[2021-10-06] MEDS ORDERED: CEPH500T PO (12:10)
[2021-10-06] MEDS ORDERED: ACHD5005 PO (12:10)
--- NOTE | 2021-10-06 19:15 | OPERATIVE REPORT ---
DATE OF SERVICE: 10/06/2021 PREOPERATIVE DIAGNOSIS: Bilateral hydrocele. POSTOPERATIVE DIAGNOSES: Bilateral hydrocele and spermatocele. OPERATION PERFORMED: Bilateral hydrocelectomy and spermatocelectomy. SURGEON: Victoria Khoury MD ANESTHESIA: General. COMPLICATIONS: None. DESCRIPTION OF PROCEDURE: Under satisfactory general anesthesia, the patient in supine position, the abdomen, genitalia and thigh were prepped and draped in the usual sterile fashion. Incision was made in the medial raphae, carried through the right scrotal compartment. Bleeders were cauterized as the dissection was proceeding. A large amount of hydrocele fluid was evacuated. The testicle and appendages were delivered in the wound, was noted a hydrocele as well as a good sized spermatocele. I dissected the spermatocele completely and then ligated the base with 3-0 chromic catgut. The hydrocele sac was everted behind the spermatic cord with interrupted 3-0 chromic catgut sutures. was complete. The testicle was replaced into the scrotum that was drained with a quarter of an inch Yudith drain brought through a separate stab wound at the bottom of the incision and secured in position with 3-0 chromic catgut suture. I went ahead and closed the dartos with running 3-0 chromic catgut and then through the same incision I opened the scrotal compartment on the left side. Same scenario, but a smaller amount of fluid. I performed the same procedure with the spermatocele and hydrocele and hemostasis was complete. Testicle was replaced in the scrotum and again scrotum was drained with quarter of an inch [place] drain secured in position at the bottom of the scrotum with 3-0 chromic gut suture. I closed the dartos layer on that side similarly and then the scrotum was closed with interrupted 4-0 Vicryl. Fluffs, Telfa and scrotal support was applied. The needle and sponge counts were correct x2. ESTIMATED BLOOD LOSS: Less than 50 mL, none of which was replaced. The patient tolerated the procedure and anesthesia well and was sent to recovery room in stable condition. The patient will be informed of a high likelihood of recurrence because of the all these issues he has, which was told before the surgery anyway. Job ID: [id number] DocumentID: [id number] Dictated Date: 10/06/2021 11:33:45 [employer] Date: 10/06/2021 19:14:21 Dictated By: VICTORIA KHOURY MD
== END 2021-10-06 14:03 ==
LOC: SDC 07:46
PROVIDERS: ATTEND Urology
DX: N43.40 Spermatocele of epididymis, unspecified (principal); N43.3 Hydrocele, unspecified; E11.9 Type 2 diabetes mellitus without complications; F17.210 Nicotine dependence, cigarettes, uncomplicated; Z91.19 Patient's noncompliance with other medical treatment and regimen
CPT/HCPCS: 82947; 87081